=== PATIENT | male | born 1950 | race Caucasian/White ===

== ENCOUNTER → 2017-01-06 | Outpatient (CLI) | payer OTHER ==
[2017-01-06 10:27] LABS: CH 33.7; CHCM 35.1; HCT 36.4 % (39.0-53.0); MCH 34.4 pg (25.0-35.0); MCHC 35.6 g/dL (31.0-37.0); MCV 96.6 fL (80.0-100.0); Mean Platelet Volume 6.8; RBC 3.77 m/uL (4.30-5.90); RDW 15.4 % (11.5-15.5); WBC 5.8 k/uL (3.8-10.6)
[2017-01-06 11:06] LABS: Anion Gap 12 mmol/L; Blood Urea Nitrogen 16 mg/dL (9-20); Carbon Dioxide 25 mmol/L (22-30); Chloride 104 mmol/L (98-107); Glucose 140 mg/dL (74-99); Non-African American GFR(MDRD) >60 (>60 ml/min/1.73 sqM); Potassium 4.7 mmol/L (3.5-5.1); Sodium 141 mmol/L (137-145)
== END | disposition home or self-care (01) ==
LOC: LABWHC1 09:09
PROVIDERS: ATTEND Internal Medicine Clinical Cardiac Electrophysiology
DX: I25.10 Atherosclerotic heart disease of native coronary artery without angina pectoris (principal); I49.5 Sick sinus syndrome; I25.5 Ischemic cardiomyopathy; I50.22 Chronic systolic (congestive) heart failure
CPT/HCPCS: 36415; 80048; 85027

== ENCOUNTER 2017-01-13 13:40 | Day surgery (SDC) | payer OTHER ==
[2017-01-11 11:55] VITALS: BMI 35.8
[~2017-01-13 13:40] MED LIST: LACTATED RINGERS 1,000 ML IV SCH; SODIUM CHLORIDE 0.9% 1,000 ML IV SCH; ceFAZolin 1,000 MG in SODIUM CHLORIDE 0.9% IRRIGATIO 250 ML IRRIGATION ONE; ceFAZolin 2 GM in SODIUM CHLORIDE 0.9% 100 ML IVPB ONE
[2017-01-13 14:21] LABS: Glucose,Whole Blood 113 mg/dL (75-99)
[2017-01-13 14:36] LABS: Magnesium 1.9 mg/dL (1.6-2.3)
[2017-01-13] MEDS ORDERED: fentaNYL (PF) 50 MCG/ML 2 ML AMP ONE (14:55)
[2017-01-13] MEDS ORDERED: MIDAZOLAM 2 MG/2 ML VIAL ONE (14:55)
[2017-01-13] MEDS ORDERED: PROPOFOL 10 MG/ML 20 ML VIAL IV ONE (14:55)
[2017-01-13] MEDS ORDERED: IODIXANOL 320 MG/ML 100 ML IV ONE (15:08)
[2017-01-13] MEDS ORDERED: LIDOCAINE 2% INJ 20 MG/ML SQ ONE (15:49)
[2017-01-13] MEDS ORDERED: ACETAMINOPHEN TAB 325 MG TAB PO PRN (17:06)
[2017-01-13] MEDS ORDERED: ACETAMINOPHEN IV (For NPO) 1,000 MG in EMPTY BAG 1 BAG IVPB ONE (17:15)
[2017-01-13 17:57] LABS: Glucose,Whole Blood 100 mg/dL (75-99)
--- NOTE | 2017-01-13 18:07 | CE ---
DATE OF SERVICE: Mr. New is a 66-year-old male patient who has known ischemic cardiomyopathy and class II heart failure symptoms, sick sinus syndrome, ejection fraction 35% with inferolateral akinesis, CAD, old myocardial infarction, status post coronary stenting in 2013, chronotropic incompetence and a narrow QRS and also type 2 diabetes on medications. He underwent dual chamber ICD implantation for primary prevention of sudden cardiac as well as chronotropic incompetence, sick sinus syndrome and for ischemic cardiomyopathy with chronic systolic dysfunction, ejection fraction of 35%. Patient is brought to the EP lab in a fasting state. Written informed consent was obtained prior to the procedure. The left shoulder area was prepped and draped as per protocol. 1% lidocaine was used for local anesthesia. A 4 cm incision was made parallel to the deltopectoral groove about 1 to 1.5 cm medial to it. Incision was carried down to the level of the pectoralis muscle. Subfascial pocket was made. Hemostasis was assured. Axillary vein access was obtained at 2 separate points under fluoroscopy and via appropriate-sized introducer sheaths, 2 leads were positioned in the right heart. The atrial lead was a [employer] model #[id number], 52 cm in length and serial [id number]. This was screwed into the atrial appendage. P waves were 348 mV, pacing impedance ( ), pacing threshold 1 v at 0.5 ms. The RV lead was [employer] model #[id number], 58 cm in length and serial #[id number]. R waves were 12 mV, pacing impedance 640 ohms, pacing threshold 0.7 v at 0.5 ms. This was secured to the underlying pectoralis fascia using 2 nonabsorbable sutures. Pocket was irrigated with antibiotic solution. Leads were connected to the generator ([employer] medical model #[id number], serial #[id number]. Leads and the generator were then placed in the subfascial pocket. The generator was secured to the underlying pectoralis muscle. The wound was closed in 3 layers and dressed per protocol. DFT TESTING UNDER ANESTHESIA: DFT testing under anesthesia was performed. A shock and T wave protocol was used to induce ventricular fibrillation. This was adequately and appropriately detected at least sensitivity and in cathodal configuration a 10 joule shock failed, but a 20 joule shock was successful. Charge time was 4 seconds. The shock impedance was 70 ohms. No postshock noise. This was repeated once again in the anodal configuration, but once again the 10 joules shock failed, 20 joules shock was successful. No dropouts. No postshock noise. Charge time 4 seconds. Shocking impedance 72 ohms. Device was then programmed to DDDR 50 to 130 beats a minute and VIP mode Madit-RIT programming was programmed. RESULT: Successful dual-chamber ICD for severe ischemic cardiomyopathy and class II heart failure symptoms and sick sinus syndrome. PLAN: 1. Maximize beta blockers and increase Coreg to 6.25 mg twice daily. 2. Consider Entresto in the future. 3. High DFT.
--- NOTE | 2017-01-13 18:10 | LTR ---
January 13, 2017 RE: Alban New Eun Dear Dr. Micaela Hunt: I had the pleasure of seeing Mr. Alban New in electrophysiology follow-up. As you know, Mr. New has severe ischemic cardiomyopathy with class II heart failure symptoms and chronotropic incompetence with sick sinus syndrome. He underwent dual chamber ICD implantation for primary prevention of sudden cardiac . He has high DFT at 20 joules in both cathodal and anodal configurations. I have increased the dose of carvedilol to 6.25 mg twice daily and in the near future I would consider switching from NATHALIA inhibitors to Entresto if possible. Thank you for entrusting me with the care of your patient. Warm regards. Sincerely, AVANI VIRAMONTES MD
[2017-01-13] MEDS ORDERED: INSULIN GLARGINE 100 UNIT/ML 10 ML VIAL SQ SCH (21:00)
[2017-01-13] MEDS ORDERED: ATORVASTATIN 80 MG TAB PO SCH (21:00)
[2017-01-13] MEDS: ceFAZolin 2 GM in SODIUM CHLORIDE 0.9% 100 ML IVPB SCH (22:43)
[2017-01-13] MEDS: HYDROcodone/APAP 5-325MG 1 EACH TAB PO PRN (22:48)
[2017-01-13] MEDS: CARVEDILOL 6.25 MG TAB PO SCH (23:05)
[2017-01-13] MEDS: LISINOPRIL 20 MG TAB PO SCH (23:05)
[2017-01-13] MEDS: metFORMIN 500 MG TAB PO SCH (23:05)
[2017-01-14] MEDS: ceFAZolin 2 GM in SODIUM CHLORIDE 0.9% 100 ML IVPB SCH ×3 (03:51→14:35)
--- NOTE | 2017-01-14 08:01 | P.DS ---
Providers Attending physician: Pollo Burgess Primary care physician: Stated None Hospital Course: Patient is doing well from a cardiac standpoint. He denies any chest discomfort no dizziness lightheadedness. He has mild discomfort in the ICD site but there is no hematoma no swelling Breath sounds are normal no rhonchi no crackles Heart sounds are normal no rub no gallop normal heart sounds no murmurs No JVD No hematoma over the ICD site Impression Severe ischemic or myopathy ejection fraction 35% or less chronic systolic dysfunction with class II heart failure Status post dual-chamber ICD because he also has Sick Sinus Syndrome/ chronotropic incompetence Hypertension Adult-onset diabetes Dyslipidemia Central obesity BMI 35.8 CAD inferior wall RI status post CABG High DFTs both in the Total as well as an sparkle configurations of 20 J. 10 J failed Plan Increase carvedilol to 6.25 mg twice daily Next step is to consider ENTRESTO instead of lisinopril May go home if his chest x-ray, device interrogation both are within normal limits and once he completes IV antibiotics Patient Condition at Discharge: Stable Plan - Discharge Summary Discharge Medication List Clopidogrel Bisulfate [Plavix] 75 mg PO DAILY 01/25/14 [History] RX: Aspirin 650 mg PO QAM 01/25/14 [History] RX: metFORMIN HCL [Glucophage] 500 mg PO BID 01/25/14 [History] glipiZIDE [Glipizide Xl] 10 mg PO DAILY 01/25/14 [History] RX: Atorvastatin [Lipitor] 80 mg PO HS #30 tab 01/26/14 [Rx] RX: Spironolactone [Aldactone] 25 mg PO DAILY #30 tab 01/26/14 [Rx] Carvedilol [Carvedilol] 3.125 mg PO BID 07/27/16 [History] Cholecalciferol [Vitamin D3] 1,000 unit PO DAILY 07/27/16 [History] Isosorbide Mononitrate [Isosorbide Mononitrate ER] 30 mg PO DAILY 07/27/16 [ History] Insulin Glargine [Lantus] 52 units SQ HS 30 Days 07/28/16 [Rx]
--- NOTE | 2017-01-14 08:09 | XR ---
EXAMINATION TYPE: XR chest 2V DATE OF EXAM: 01/14/2017 6:20 AM COMPARISON: Prior chest x-ray one July 2016 HISTORY: Lead placement check TECHNIQUE: Frontal and lateral views of the chest are obtained. FINDINGS: There is no focal air space opacity, pleural effusion, or pneumothorax seen. The cardiac silhouette size is stable. Generator has been placed in the left pectoral region, there are leads in the right atrium and ventricle. Patient is post median sternotomy. The osseous structures are intact . IMPRESSION: No evident complication status post pacemaker placement.
[2017-01-14] MEDS: metFORMIN 500 MG TAB PO SCH (08:18)
[2017-01-14] MEDS: CARVEDILOL 6.25 MG TAB PO SCH (08:18)
[2017-01-14] MEDS: LISINOPRIL 20 MG TAB PO SCH (08:18)
[2017-01-14] MEDS: HYDROcodone/APAP 5-325MG 1 EACH TAB PO PRN (08:23)
[2017-01-14] MEDS ORDERED: ISOSORBIDE MONONITRATE ER 30 MG TAB.ER.24H PO SCH (09:00)
[2017-01-14] MEDS ORDERED: glipiZIDE 5 MG TAB PO SCH (09:00)
[2017-01-14] MEDS ORDERED: CLOPIDOGREL 75 MG TAB PO SCH (09:00)
[2017-01-14] MEDS ORDERED: SPIRONOLACTONE 25 MG TAB PO SCH (09:00)
[2017-01-14 13:28] VITALS: RESP 16
[2017-01-14 16:46] VITALS: BP 105/49; PULSE 59; TEMP 98.4
== END 2017-01-14 17:15 | disposition home or self-care (01) ==
LOC: CATHEP 13:40 → 3OBS 17:06 → CATHEP 01-14 17:15
PROVIDERS: ATTEND Internal Medicine Clinical Cardiac Electrophysiology
DX: I49.5 Sick sinus syndrome (principal); I25.5 Ischemic cardiomyopathy; I25.10 Atherosclerotic heart disease of native coronary artery without angina pectoris; I11.0 Hypertensive heart disease with heart failure; I50.22 Chronic systolic (congestive) heart failure; Z00.6 Encounter for examination for normal comparison and control in clinical research program; Z95.1 Presence of aortocoronary bypass graft; Z82.49 Family history of ischemic heart disease and other diseases of the circulatory system; I25.2 Old myocardial infarction; Z95.5 Presence of coronary angioplasty implant and graft; E66.8 Other obesity; Z68.35 Body mass index [BMI] 35.0-35.9, adult; E78.5 Hyperlipidemia, unspecified; K21.9 Gastro-esophageal reflux disease without esophagitis; Z87.891 Personal history of nicotine dependence; E11.9 Type 2 diabetes mellitus without complications; Z79.4 Long term (current) use of insulin; Z79.84 Long term (current) use of oral hypoglycemic drugs; Z79.82 Long term (current) use of aspirin; Z79.899 Other long term (current) drug therapy
CPT/HCPCS: 93641; 33249; 83735; 84443; 71020; C1892 ×2; C1769 ×2; C1898; C1721; C1777; J2001; J2250; Q9967; J0690 ×3; J3010; J2704

== ENCOUNTER 2020-05-13 15:59 | Inpatient (IN) | payer MEDICARE, OTHER ==
[2020-05-13] MEDS ORDERED: SODIUM CHLORIDE 0.9% 1,000 ML IV STA ×3 (16:48→19:41)
[2020-05-13 17:06] LABS: Basophils # (A) 0.1 k/uL (0-0.2); Basophils % (A) 1 %; Eosinophils # (A) 0.1 k/uL (0-0.7); Eosinophils % (A) 1 %; HCT 41.6 % (39.0-53.0); HGB 14.9 gm/dL (13.0-17.5); Hyperchromasia Slight; Lymphocytes # (A) 2.3 k/uL (1.0-4.8); Lymphocytes % (A) 20 %; MCH 33.1 pg (25.0-35.0); MCHC 35.9 g/dL (31.0-37.0); Mean Platelet Volume 7.2; Monocytes % (A) 9 %; Neutrophils # (A) 7.4 k/uL (1.3-7.7); Neutrophils % (A) 64 %; Platelet Count 203 k/uL (150-450); RBC 4.51 m/uL (4.30-5.90); RDW 13.9 % (11.5-15.5); WBC 11.5 k/uL (3.8-10.6)
[2020-05-13 17:16] LABS: Albumin 5.1 g/dL (3.5-5.0); Calcium 9.1 mg/dL (8.4-10.2); Potassium 4.1 mmol/L (3.5-5.1); Total Bilirubin 6.5 mg/dL (0.2-1.3); Total Protein 8.2 g/dL (6.3-8.2)
--- NOTE | 2020-05-13 17:22 | XR ---
EXAMINATION TYPE: XR chest 2V DATE OF EXAM: 05/13/2020 COMPARISON: 01/14/2017 HISTORY: Abdominal pain chest pain TECHNIQUE: 2 views FINDINGS: Heart and mediastinum are normal. Lungs are clear. Diaphragm is normal. There are sternal w ires. There is left axillary pacemaker. The bony thorax is intact. IMPRESSION: No active cardiopulmonary disease. Heart appears smaller than old exam.
--- NOTE | 2020-05-13 17:25 | XR ---
EXAMINATION TYPE: XR KUB DATE OF EXAM: 05/13/2020 COMPARISON: July 28, 2011 HISTORY: Pain TECHNIQUE: 2 views FINDINGS: There are clips from cholecystectomy. There are some small bowel fluid levels with probably some dilated small bowel. I see no evidence of free air. Lung bases are clear. Increased density over the right lower quadrant consistent with abdominal hernia. IMPRESSION: There is probably dilated fluid-filled small bowel that is a change compared to old exam. No free air.
[2020-05-13 17:27] LABS: MCV 92.2 fL (80.0-100.0)
[2020-05-13 18:07] LABS: Amylase 56 U/L (30-110)
[2020-05-13 18:08] LABS: Appearance,Urine Clear (Clear); Bilirubin,Urine Negative (Negative); Blood,Urine Negative (Negative); Color,Urine Yellow; Glucose,Urine (UA) Negative (Negative); Ketones,Urine Negative (Negative); Leukocyte Esterase,Urine Negative (Negative); Nitrite,Urine Negative (Negative); Protein,Urine Trace (Negative); Specific Gravity,Urine 1.024 (1.001-1.035)
--- NOTE | 2020-05-13 18:16 | US ---
EXAMINATION TYPE: US gallbladder DATE OF EXAM: 05/13/2020 COMPARISON: US 2012 CLINICAL HISTORY: Elevated bilirubin with abdominal pain. EXAM MEASUREMENTS: Liver Length: 15.2 cm Gallbladder Wall: Surgically absent CBD: 0.8 cm Right Kidney: 10.4 x 3.2 x 3.8 cm Pancreas: visualized portions wnl Liver: wnl Gallbladder: Surgically absent CBD: measures 0.8 cm Right Kidney: No hydronephrosis or masses seen Large peristalsing fluid collection midline measuring 14.1 x 7.3 x 12.3 cm. IMPRESSION: Intrahepatic bile ducts are not dilated. Cholecystectomy. No evidence of pancreatic mass.
--- NOTE | 2020-05-13 18:18 | ED ---
Dizziness HPI - General Chief Complaint: Dizziness Stated Complaint: Weakness Time Seen by Provider: 05/13/20 16:30 Source: patient Mode of arrival: wheelchair Limitations: no limitations - History of Present Illness Initial Comments: This is a 70-year-old male with a history of abdominal wall hernia Other medical issues who states for past couple days he's had decreased oral intake very weak dizzy lightheaded had trouble urinating head abdominal pain which is different from his usual decreased urine output.States he been constipated for the past 2 days. He denies any overt fevers chills or sweats no chest pain no cough. No other modifying factors at this time MD Complaint: dizziness, lightheadedness, other - Related Data Home Medications Medication Instructions Recorded Confirmed Aspirin 650 mg PO QAM 01/25/14 01/13/17 Clopidogrel Bisulfate [Plavix] 75 mg PO DAILY 01/25/14 01/13/17 glipiZIDE [Glipizide Xl] 10 mg PO DAILY 01/25/14 01/13/17 metFORMIN HCL [Glucophage] 500 mg PO BID 01/25/14 01/13/17 Cholecalciferol [Vitamin D3] 1,000 unit PO DAILY 07/27/16 01/13/17 Isosorbide Mononitrate [Isosorbide 30 mg PO DAILY 07/27/16 01/13/17 Mononitrate ER] Previous Rx's Medication Instructions Recorded Atorvastatin [Lipitor] 80 mg PO HS #30 tab 01/26/14 Spironolactone [Aldactone] 25 mg PO DAILY #30 tab 01/26/14 Insulin Glargine [Lantus] 52 units SQ HS 30 Days vial 07/28/16 carvediloL [Coreg] 6.25 mg PO BID #1 tablet 01/14/17 Allergies Allergy/AdvReac Type Severity Reaction Status Date / Time No Known Allergies Allergy Verified 01/11/17 11:43 Review of Systems ROS Statement: Those systems with pertinent positive or pertinent negative responses have been documented in the HPI. ROS Other: All systems not noted in ROS Statement are negative. Past Medical History Past Medical History: Chest Pain / Angina, Diabetes Mellitus, Hyperlipidemia, Hypertension Additional Past Medical History / Comment(s): LARGE ABD HERNIA History of Any Multi-Drug Resistant Organisms: None Reported Past Surgical History: Coronary Bypass/CABG, Heart Catheterization With Stent Additional Past Surgical History / Comment(s): quad bypass CABG 1994, total 9 cardiac stents Past Anesthesia/Blood Transfusion Reactions: No Reported Reaction Date of Last Stent Placement:: 2009 Past Psychological History: No Psychological Hx Reported Smoking Status: Never smoker Past Alcohol Use History: None Reported Past Drug Use History: None Reported - Past Family History Brother(s) Family Medical History: Cancer Sister(s) Family Medical History: Diabetes Mellitus, Hypertension General Exam - General Exam Comments Initial Comments: This is a well-developed well-nourished awake alert oriented 3 male Limitations: no limitations General appearance: alert, anxious Head exam: Present: atraumatic, normocephalic, normal inspection Eye exam: Present: normal appearance, PERRL, EOMI. Absent: scleral icterus, conjunctival injection, periorbital swelling ENT exam: Present: mucous membranes dry Neck exam: Present: normal inspection. Absent: tenderness, meningismus, lymphadenopathy Respiratory exam: Present: normal lung sounds bilaterally. Absent: respiratory distress, wheezes, rales, rhonchi, stridor Cardiovascular Exam: Present: regular rate, normal rhythm, normal heart sounds. Absent: systolic murmur, diastolic murmur, rubs, gallop, clicks GI/Abdominal exam: Present: soft, tenderness (Mild tenderness palpation no guarding or rebound however. Abdominal wall hernias noted), normal bowel sounds. Absent: distended, guarding, rebound, rigid Rectal exam: Present: deferred Extremities exam: Present: normal inspection, full ROM, normal capillary refill. Absent: tenderness, pedal edema, joint swelling, calf tenderness Back exam: Present: normal inspection Neurological exam: Present: alert, oriented X3, CN II-XII intact Psychiatric exam: Present: normal affect, normal mood Skin exam: Present: warm, dry, intact, normal color. Absent: rash Course Vital Signs 05/13/20 05/13/20 05/13/20 16:16 17:01 18:00 Temperature 98.2 F Pulse Rate 64 59 L 59 L Respiratory 18 18 18 Rate Blood Pressure 120/68 128/77 122/73 O2 Sat by Pulse 96 96 95 Oximetry EKG Findings - EKG Results: EKG: interpreted by ERMLulú, sinus rhythm (Sinus rhythm a 61. 186 QRS duration 126 QT since QTC 42/485) bundle-branch block evidence of old inferior changes) Medical Decision Making - Medical Decision Making I did discuss findings with the patient and his . Patient be admitted case is discussed with Dr. Zhou. CT abdomen is ordered. - Lab Data Result diagrams: 05/13/20 16:54 05/13/20 16:54 Lab Results 05/13/20 05/13/20 05/13/20 Range/Units 16:54 16:54 16:54 WBC 11.5 H (3.8-10.6) k/uL RBC 4.51 (4.30-5.90) m/uL Hgb 14.9 (13.0-17.5) gm/dL Hct 41.6 (39.0-53.0) % MCV 92.2 D (80.0-100.0) fL MCH 33.1 (25.0-35.0) pg MCHC 35.9 (31.0-37.0) g/dL RDW 13.9 (11.5-15.5) % Plt Count 203 (150-450) k/uL Neutrophils % 64 % Lymphocytes % 20 % Monocytes % 9 % Eosinophils % 1 % Basophils % 1 % Neutrophils # 7.4 (1.3-7.7) k/uL Lymphocytes # 2.3 (1.0-4.8) k/uL Monocytes # 1.0 (0-1.0) k/uL Eosinophils # 0.1 (0-0.7) k/uL Basophils # 0.1 (0-0.2) k/uL Hyperchromasia Slight Sodium 132 L (137-145) mmol/L Potassium 4.1 (3.5-5.1) mmol/L Chloride 84 L (98-107) mmol/L Carbon Dioxide 28 (22-30) mmol/L Anion Gap 20 mmol/L BUN 91 H (9-20) mg/dL Creatinine 1.88 H (0.66-1.25) mg/dL Est GFR (CKD-EPI)AfAm 42 (>60 ml/min/1.73 sqM) Est GFR (CKD-EPI)NonAf 36 (>60 ml/min/1.73 sqM) Glucose 144 H (74-99) mg/dL Plasma Lactic Acid Chavo (0.7-2.0) mmol/L Calcium 9.1 (8.4-10.2) mg/dL Total Bilirubin 6.5 H (0.2-1.3) mg/dL AST 56 (17-59) U/L ALT 26 (4-49) U/L Alkaline Phosphatase 64 (38-126) U/L Troponin I (0.000-0.034) ng/mL Total Protein 8.2 (6.3-8.2) g/dL Albumin 5.1 H (3.5-5.0) g/dL Amylase (30-110) U/L Lipase (23-300) U/L Urine Color Yellow Urine Appearance Clear (Clear) Urine pH 5.0 (5.0-8.0) Ur Specific [place] 1.024 (1.001-1.035) Urine Protein Trace H (Negative) Urine Glucose (UA) Negative (Negative) Urine Ketones Negative (Negative) Urine Blood Negative (Negative) Urine Nitrite Negative (Negative) Urine Bilirubin Negative (Negative) Urine Urobilinogen 2.0 (<2.0) mg/dL Ur Leukocyte Esterase Negative (Negative) 05/13/20 05/13/20 05/13/20 Range/Units 16:54 16:54 16:54 WBC (3.8-10.6) k/uL RBC (4.30-5.90) m/uL Hgb (13.0-17.5) gm/dL Hct (39.0-53.0) % MCV (80.0-100.0) fL MCH (25.0-35.0) pg MCHC (31.0-37.0) g/dL RDW (11.5-15.5) % Plt Count (150-450) k/uL Neutrophils % % Lymphocytes % % Monocytes % % Eosinophils % % Basophils % % Neutrophils # (1.3-7.7) k/uL Lymphocytes # (1.0-4.8) k/uL Monocytes # (0-1.0) k/uL Eosinophils # (0-0.7) k/uL Basophils # (0-0.2) k/uL Hyperchromasia Sodium (137-145) mmol/L Potassium (3.5-5.1) mmol/L Chloride (98-107) mmol/L Carbon Dioxide (22-30) mmol/L Anion Gap mmol/L BUN (9-20) mg/dL Creatinine (0.66-1.25) mg/dL Est GFR (CKD-EPI)AfAm (>60 ml/min/1.73 sqM) Est GFR (CKD-EPI)NonAf (>60 ml/min/1.73 sqM) Glucose (74-99) mg/dL Plasma Lactic Acid Chavo 1.9 (0.7-2.0) mmol/L Calcium (8.4-10.2) mg/dL Total Bilirubin (0.2-1.3) mg/dL AST (17-59) U/L ALT (4-49) U/L Alkaline Phosphatase (38-126) U/L Troponin I 0.039 H* (0.000-0.034) ng/mL Total Protein (6.3-8.2) g/dL Albumin (3.5-5.0) g/dL Amylase 56 (30-110) U/L Lipase 325 H (23-300) U/L Urine Color Urine Appearance (Clear) Urine pH (5.0-8.0) Ur Specific [place] (1.001-1.035) Urine Protein (Negative) Urine Glucose (UA) (Negative) Urine Ketones (Negative) Urine Blood (Negative) Urine Nitrite (Negative) Urine Bilirubin (Negative) Urine Urobilinogen (<2.0) mg/dL Ur Leukocyte Esterase (Negative) - Radiology Data Radiology results: report reviewed (I did review the imaging and report evidence of air-fluid levels nonspecific.), image reviewed Disposition Clinical Impression: Acute kidney injury, Elevated troponin, Dehydration, Hyperbilirubinemia, V entral hernia, Abdominal pain Disposition: ADMITTED IP TO THIS HOSP Condition: Fair Referrals: Laura Pryor MD [Primary Care Provider] - 1-2 days
[2020-05-13] MEDS ORDERED: NALOXONE 0.4 MG/ML 1 ML VIAL IV PRN (18:45)
[2020-05-13] MEDS ORDERED: ONDANSETRON 4 MG/2 ML VIAL IVP PRN (18:45)
--- NOTE | 2020-05-13 19:13 | CT ---
EXAMINATION TYPE: CT abdomen pelvis wo con DATE OF EXAM: 05/13/2020 COMPARISON: None HISTORY: Abdominal distention CT DLP: 942 mGycm Automated exposure control for dose reduction was used. Lung bases are clear. There is no pleural effusion. Heart size is normal. Liver shows no focal defect. There are multiple small calcified splenic granulomata. There is no panc reatic mass. There are clips from cholecystectomy. There are a few calcified granulomata in the liver . There is large stomach filled with fluid. There is large midline ventral hernia that contains multiple loops of bowel. There is an additional a djacent ventral hernia that contains a single loop of small bowel. This appears to be an umbilical he rnia. There is no adrenal mass. Kidneys have normal size. There is no hydronephrosis. Ureters are not dilated. There is no retroperitoneal adenopathy. Bladder distends smoothly. There are multiple dilated fluid-filled small bowel loops in the mid abdomen. Distal small bowel is n ot dilated. There is small bowel transition point at the smaller umbilical hernia. This contains a si ngle loop of incarcerated small bowel. The larger ventral hernia contains multiple loops of bowel wit hout evidence of a transition. There is atherosclerotic vascular calcification. The appendix is superior and medial and appears norm al. There is no evidence of free air. There is no ascites. There is no inguinal hernia. Lumbar vertebra have normal alignment. Posterior elements are intact. There is no compression fractur e. Bony pelvis is intact. IMPRESSION: There are 2 ventral hernias. There is incarcerated single loop of small bowel in the smaller hernia o n the left side that is producing mechanical small bowel obstruction. Small bowel dilated up to 4.5 c m.
--- NOTE | 2020-05-13 19:34 | ED ---
Medical Decision Making - Medical Decision Making Patient's case was discussed with Dr. Nguyen in light of the CAT scan patient will be admitted to his service with NG tube IV hydration and fully catheter for monitoring fluid output. The sound group will be on consult - Lab Data Result diagrams: 05/13/20 16:54 05/13/20 16:54 Lab Results 05/13/20 05/13/20 05/13/20 Range/Units 16:54 16:54 16:54 WBC 11.5 H (3.8-10.6) k/uL RBC 4.51 (4.30-5.90) m/uL Hgb 14.9 (13.0-17.5) gm/dL Hct 41.6 (39.0-53.0) % MCV 92.2 D (80.0-100.0) fL MCH 33.1 (25.0-35.0) pg MCHC 35.9 (31.0-37.0) g/dL RDW 13.9 (11.5-15.5) % Plt Count 203 (150-450) k/uL Neutrophils % 64 % Lymphocytes % 20 % Monocytes % 9 % Eosinophils % 1 % Basophils % 1 % Neutrophils # 7.4 (1.3-7.7) k/uL Lymphocytes # 2.3 (1.0-4.8) k/uL Monocytes # 1.0 (0-1.0) k/uL Eosinophils # 0.1 (0-0.7) k/uL Basophils # 0.1 (0-0.2) k/uL Hyperchromasia Slight Sodium 132 L (137-145) mmol/L Potassium 4.1 (3.5-5.1) mmol/L Chloride 84 L (98-107) mmol/L Carbon Dioxide 28 (22-30) mmol/L Anion Gap 20 mmol/L BUN 91 H (9-20) mg/dL Creatinine 1.88 H (0.66-1.25) mg/dL Est GFR (CKD-EPI)AfAm 42 (>60 ml/min/1.73 sqM) Est GFR (CKD-EPI)NonAf 36 (>60 ml/min/1.73 sqM) Glucose 144 H (74-99) mg/dL Plasma Lactic Acid Chavo (0.7-2.0) mmol/L Calcium 9.1 (8.4-10.2) mg/dL Total Bilirubin 6.5 H (0.2-1.3) mg/dL AST 56 (17-59) U/L ALT 26 (4-49) U/L Alkaline Phosphatase 64 (38-126) U/L Troponin I (0.000-0.034) ng/mL Total Protein 8.2 (6.3-8.2) g/dL Albumin 5.1 H (3.5-5.0) g/dL Amylase (30-110) U/L Lipase (23-300) U/L Urine Color Yellow Urine Appearance Clear (Clear) Urine pH 5.0 (5.0-8.0) Ur Specific [place] 1.024 (1.001-1.035) Urine Protein Trace H (Negative) Urine Glucose (UA) Negative (Negative) Urine Ketones Negative (Negative) Urine Blood Negative (Negative) Urine Nitrite Negative (Negative) Urine Bilirubin Negative (Negative) Urine Urobilinogen 2.0 (<2.0) mg/dL Ur Leukocyte Esterase Negative (Negative) 05/13/20 05/13/20 05/13/20 Range/Units 16:54 16:54 16:54 WBC (3.8-10.6) k/uL RBC (4.30-5.90) m/uL Hgb (13.0-17.5) gm/dL Hct (39.0-53.0) % MCV (80.0-100.0) fL MCH (25.0-35.0) pg MCHC (31.0-37.0) g/dL RDW (11.5-15.5) % Plt Count (150-450) k/uL Neutrophils % % Lymphocytes % % Monocytes % % Eosinophils % % Basophils % % Neutrophils # (1.3-7.7) k/uL Lymphocytes # (1.0-4.8) k/uL Monocytes # (0-1.0) k/uL Eosinophils # (0-0.7) k/uL Basophils # (0-0.2) k/uL Hyperchromasia Sodium (137-145) mmol/L Potassium (3.5-5.1) mmol/L Chloride (98-107) mmol/L Carbon Dioxide (22-30) mmol/L Anion Gap mmol/L BUN (9-20) mg/dL Creatinine (0.66-1.25) mg/dL Est GFR (CKD-EPI)AfAm (>60 ml/min/1.73 sqM) Est GFR (CKD-EPI)NonAf (>60 ml/min/1.73 sqM) Glucose (74-99) mg/dL Plasma Lactic Acid Chavo 1.9 (0.7-2.0) mmol/L Calcium (8.4-10.2) mg/dL Total Bilirubin (0.2-1.3) mg/dL AST (17-59) U/L ALT (4-49) U/L Alkaline Phosphatase (38-126) U/L Troponin I 0.039 H* (0.000-0.034) ng/mL Total Protein (6.3-8.2) g/dL Albumin (3.5-5.0) g/dL Amylase 56 (30-110) U/L Lipase 325 H (23-300) U/L Urine Color Urine Appearance (Clear) Urine pH (5.0-8.0) Ur Specific [place] (1.001-1.035) Urine Protein (Negative) Urine Glucose (UA) (Negative) Urine Ketones (Negative) Urine Blood (Negative) Urine Nitrite (Negative) Urine Bilirubin (Negative) Urine Urobilinogen (<2.0) mg/dL Ur Leukocyte Esterase (Negative) - Radiology Data Radiology results: report reviewed (Computed tomography scan did show evidence of small bowel obstruction with incarcerated single loop of small bowel in the smaller 2 ventral hernias on the left evidence of mechanical small bowel obstruction with small bowel dilated up to 4.5 cm. The case was discussed with Dr. Nguyen), image reviewed Disposition Clinical Impression: Acute kidney injury, Elevated troponin, Dehydration, Hyperbilirubinemia, Ventral hernia, Abdominal pain, SBO (small bowel obstruction), Incarcerated hernia Disposition: ADMITTED IP TO THIS HOSP Condition: Fair
[2020-05-13] MEDS: SODIUM CHLORIDE 0.9% 1,000 ML IV SCH (19:43)
[2020-05-13 20:39] LABS: INR 2.7 (<1.2); Partial Thromboplastin Time 36.8 sec (22.0-30.0); Prothrombin Time 26.2 sec (9.0-12.0)
[2020-05-13] MEDS: HYDROmorphone 1 MG/ML 1 ML SYRINGE IVP PRN (23:07)
--- NOTE | 2020-05-13 23:15 | P.CONS ---
History of Present Illness - Reason for Consult Consult date: 05/13/20 - History of Present Illness The patient is a 70-year-old male with a PMH of coronary artery disease status post multiple stents, intracardiac thrombus (on Coumadin), sick sinus syndrome status post pacemaker placement, hypertension, hyperlipidemia, type II DM, and chronic abdominal hernias presented to the ED with complaints of nausea, vomiting, and abdominal pain. The patient reported that he was in his usual state of health until about 2 days ago when he initially developed his nausea and vomiting. At the same time, he noted that he no longer could push his hernia back and experienced some tenderness when attempting to do so. He also reported mild intermittent abdominal pain 3 out of 10, nonradiating, aching in nature, alleviated with resting, and made worse with moving around. He also reported that he has not had a bowel movement during this time he feels more bloated. He notes that due to his nausea and vomiting, he has not been able to eat or drink anything and feels dehydrated. He denied chest pain, shortness of breath, fever, chills, or cough. He reported compliance with all of his medications including Coumadin. In the emergency room, and abdominal computed tomography scan revealed 2 ventral hernias with an incarcerated single loop of bowel in the smaller hernia producing a mechanical small bowel obstruction with small bowel dilated up to 4.5 cm. Chest x-ray was unremarkable. Laboratory evaluation revealed a sodium of 132, chloride of 84, INR 2.7, troponin 0.039, BUN 91, creatinine 1.88, lipase 325, and lactic acid 1.9. Review of Systems Pertinent positives and negatives as discussed in HPI, a complete review of systems was performed and all other systems are negative. Past Medical History Past Medical History: Chest Pain / Angina, Diabetes Mellitus, Hyperlipidemia, Hypertension Additional Past Medical History / Comment(s): LARGE ABD HERNIA History of Any Multi-Drug Resistant Organisms: None Reported Past Surgical History: Coronary Bypass/CABG, Heart Catheterization With Stent Additional Past Surgical History / Comment(s): quad bypass CABG 1994, total 9 cardiac stents Past Anesthesia/Blood Transfusion Reactions: No Reported Reaction Date of Last Stent Placement:: 2009 Past Psychological History: No Psychological Hx Reported Smoking Status: Never smoker Past Alcohol Use History: None Reported Additional Past Alcohol Use History / Comment(s): quit smoking 12 yrs ago, smoked since age 16 Past Drug Use History: None Reported - Past Family History Brother(s) Family Medical History: Cancer Sister(s) Family Medical History: Diabetes Mellitus, Hypertension Medications and Allergies Home Medications Medication Instructions Recorded Confirmed Type Clopidogrel Bisulfate [Plavix] 75 mg PO DAILY 01/25/14 05/13/20 History metFORMIN HCL [Glucophage] 500 mg PO BID 01/25/14 05/13/20 History Spironolactone [Aldactone] 25 mg PO DAILY #30 tab 01/26/14 05/13/20 Rx Isosorbide Mononitrate [Isosorbide 30 mg PO DAILY 07/27/16 05/13/20 History Mononitrate ER] Acetaminophen Tab [Tylenol Tab] 500 mg PO DAILY 05/13/20 05/13/20 History Atorvastatin Calcium [Lipitor] 40 mg PO DAILY 05/13/20 05/13/20 History Insulin Glargine [Lantus] 50 unit SQ HS 05/13/20 05/13/20 History Nitroglycerin Sl Tabs [Nitrostat] 0.4 mg SL Q5M PRN 05/13/20 05/13/20 History Warfarin [Coumadin] 5 mg PO DAILY 05/13/20 05/13/20 History carvediloL [Coreg] 6.25 mg PO AC-BID 05/13/20 05/13/20 History glipiZIDE [Glucotrol] 10 mg PO BID 05/13/20 05/13/20 History Allergies Allergy/AdvReac Type Severity Reaction Status Date / Time No Known Allergies Allergy Verified 05/13/20 19:10 Physical Exam Vitals: Vital Signs Temp Pulse Pulse Resp BP BP Pulse Ox 05/13/20 20:14 58 L 19 129/72 95 05/13/20 19:15 59 L 18 156/87 96 05/13/20 19:00 97.9 F 58 L 18 137/80 96 05/13/20 18:00 59 L 18 122/73 95 05/13/20 17:01 59 L 18 128/77 96 05/13/20 16:16 98.2 F 64 18 120/68 96 Intake and Output 05/13/20 05/13/20 05/13/20 06:59 14:59 22:59 Other: Weight 97.522 kg General: non toxic, no distress, appears at stated age, obese Derm: no unusual rashes/lesions no unusual ecchymoses, warm, dry Head: atraumatic, normocephalic, symmetric Eyes: EOMI, no lid lag, anicteric sclera, pupils equal round reactive to light ENT: Nose and ears atraumatic, no thrush, no pharyngeal erythema Neck: No thyromegaly, no cervical lymphadenopathy, trachea midline, supple Mouth: no lip lesion, mucus membranes moist Cardiovascular: S1S2 reg, no murmur, positive posterior tibial pulse bilateral, no edema, capillary refill less than 2 seconds Lungs: CTA bilateral, no rhonchi, no rales , no accessory muscle use Abdominal: Large multiple ventral hernias not fully reducible with some tenderness upon deep palpation, no guarding Ext: no gross muscle atrophy, muscle strength 5 out of 5 in all 4 extremities grossly, no contractures, Neuro: CN II-XI grossly intact, light touch intact all 4 extremities, finger to nose within normal limits, Psych: Alert, oriented, appropriate affect Results CBC & Chem 7: 05/13/20 16:54 05/13/20 16:54 Labs: Abnormal Lab Results - Last 24 Hours (Table) 05/13/20 05/13/20 05/13/20 Range/Units 16:54 16:54 16:54 WBC 11.5 H (3.8-10.6) k/uL PT (9.0-12.0) sec INR (<1.2) APTT (22.0-30.0) sec Sodium 132 L (137-145) mmol/L Chloride 84 L (98-107) mmol/L BUN 91 H (9-20) mg/dL Creatinine 1.88 H (0.66-1.25) mg/dL Glucose 144 H (74-99) mg/dL Total Bilirubin 6.5 H (0.2-1.3) mg/dL Troponin I (0.000-0.034) ng/mL Albumin 5.1 H (3.5-5.0) g/dL Lipase (23-300) U/L Urine Protein Trace H (Negative) 05/13/20 05/13/20 05/13/20 Range/Units 16:54 16:54 20:05 WBC (3.8-10.6) k/uL PT 26.2 H (9.0-12.0) sec INR 2.7 H (<1.2) APTT 36.8 H (22.0-30.0) sec Sodium (137-145) mmol/L Chloride (98-107) mmol/L BUN (9-20) mg/dL Creatinine (0.66-1.25) mg/dL Glucose (74-99) mg/dL Total Bilirubin (0.2-1.3) mg/dL Troponin I 0.039 H* (0.000-0.034) ng/mL Albumin (3.5-5.0) g/dL Lipase 325 H (23-300) U/L Urine Protein (Negative) Assessment and Plan Plan: Incarcerated abdominal hernia with mechanical small bowel obstruction -As per the surgical service -Patient currently on intermittent suction and nothing by mouth Elevated troponin -Likely secondary to acute stress with dehydration and acute kidney injury -Monitor for now -Patient denying active chest pain or shortness of breath Intracardiac thrombus, on Coumadin -Patient will need reversal of Coumadin if planned for operative repair -Hold Coumadin for now Acute kidney injury, prerenal, due to dehydration -Continue with IV fluids Hyponatremia, hypochloremic -Likely due to poor oral intake -Continue with IV fluids Chronic conditions: Hypertension, hyperlipidemia, type II DM, CAD -Continue with Levemir 25 units daily at bedtime (routinely takes 50 units) with insulin sliding scale and blood glucose monitoring -Continue with Lipitor, Coreg, Imdur -Hold off on spironolactone and Plavix (Restart immediately if no plans for surgery)
[2020-05-13] MEDS: INSULIN DETEMIR (LEVEMIR) 100 UNIT/ML SYR SQ SCH (23:36)
[2020-05-14 06:33] LABS: HCT 37.1 % (39.0-53.0); HGB 12.9 gm/dL (13.0-17.5); Hyperchromasia Slight; MCH 32.7 pg (25.0-35.0); MCHC 34.7 g/dL (31.0-37.0); MCV 94.2 fL (80.0-100.0); Mean Platelet Volume 7.1; Platelet Count 142 k/uL (150-450); Poikilocytosis Slight; RBC 3.94 m/uL (4.30-5.90); RDW 14.3 % (11.5-15.5); WBC 11.1 k/uL (3.8-10.6)
[2020-05-14 06:47] LABS: Potassium 3.7 mmol/L (3.5-5.1)
[2020-05-14 06:49] LABS: INR 2.9 (<1.2); Prothrombin Time 28.5 sec (9.0-12.0)
[2020-05-14] MEDS: SODIUM CHLORIDE 0.9% 1,000 ML IV SCH ×3 (06:58→17:41)
[2020-05-14] MEDS: carvediloL 6.25 MG TAB PO SCH ×2 (06:58→17:26)
[2020-05-14] MEDS: INSULIN ASPART (NovoLOG) 100 UNIT/ML VIAL SQ SCH ×4 (06:59→17:15)
[2020-05-14] MEDS: PANTOPRAZOLE 40 MG/10 ML VIAL IV SCH (08:36)
[2020-05-14] MEDS: ATORVASTATIN 40 MG TAB PO SCH (08:41)
--- NOTE | 2020-05-14 09:33 | P.PN ---
Progress Note - Text Progress Note Date: 05/14/20 I saw the patient around 745 this morning. Patient has a large incisional hernia there appeared to be incarceration just above the umbilicus. This was reduced. The patient has a cardiac history. He has been on Coumadin and Plavix. His surgery will be canceled for today. We will obtain cardiology consult prior to surgery.
[2020-05-14] MEDS ORDERED: PHYTONADIONE ORAL 5 MG/5 ML ORAL.SYRG PO STA (09:36)
--- NOTE | 2020-05-14 10:23 | XR ---
EXAMINATION TYPE: XR chest 1V portable DATE OF EXAM: 05/14/2020 CLINICAL HISTORY: NG tube placement TECHNIQUE: Single AP portable upright view of the chest is obtained. COMPARISON: Chest x-ray from one day earlier and older studies. FINDINGS: New nasogastric tube projects below diaphragm. Persistent overlying sternal wires and medi astinal clips. Cardiac silhouette size is mildly enlarged on current study with 2-lead pacemaker/AICD . Some chronic parenchymal changes with left basilar linear scarring and/or atelectasis. Right lung r emains clear. Osseous structures are intact. IMPRESSION:New Nasogastric tube projects below diaphragm.
[2020-05-14] MEDS ORDERED: PHYTONADIONE 5 MG in SODIUM CHLORIDE 0.9% 50 ML IVPB STA (10:37)
--- NOTE | 2020-05-14 11:25 | P.PN ---
Subjective Progress Note Date: 05/14/20 No new complaints. Had an emesis episode of 400cc of feculent material, NGT placed and initially only draining with aspiration, but now draining normally. Pts history of intracardiac thrombus warrants coumadin as an outpatient. Objective - Vital Signs Vital signs: Vital Signs Temp 98.7 F 05/14/20 08:40 Pulse 63 05/14/20 08:40 Resp 18 05/14/20 08:40 BP 152/67 05/14/20 08:40 Pulse Ox 92 L 05/14/20 08:40 Intake & Output 05/13/20 05/14/20 05/14/20 18:59 06:59 18:59 Intake Total 1000 10 Output Total 1000 Balance 0 10 Weight 97.522 kg 98.5 kg Intake: IV 10 Invasive Line 1 10 Intake, IV Titration 1000 Amount Sodium Chloride 0.9% 1, 1000 000 ml @ 130 mls/hr IV . Q7H42M STA Rx#:[id number] Oral 0 Output: Urine 1000 Other: Voiding Method Indwelling Catheter Indwelling Catheter - Exam Gen: awake, alert HEENT: normocephalic, atraumatic, good hearing acuity, moist mucous membranes, +NGT draining feculent material Resp: CTAB, good air exchange, no accessory muscle use, no wheezes, crackles, rhonchi CVS: good distal perfusion x 4, RRR, no murmurs, clicks, gallops GI: soft, NTTP, ND, large incisional abdominal hernia : no SPT, no CVAT, cunningham catheter not present MSK: no pitting edema, no clubbing Neuro: non-focal, no sensory deficits, appropriate tone Psych: cooperative, euthymic mood - Labs CBC & Chem 7: 05/14/20 06:00 05/14/20 06:00 Labs: Abnormal Lab Results - Last 24 Hours (Table) 05/13/20 05/13/20 05/13/20 Range/Units 16:54 16:54 16:54 WBC 11.5 H (3.8-10.6) k/uL RBC (4.30-5.90) m/uL Hgb (13.0-17.5) gm/dL Hct (39.0-53.0) % Plt Count (150-450) k/uL PT (9.0-12.0) sec INR (<1.2) APTT (22.0-30.0) sec Sodium 132 L (137-145) mmol/L Chloride 84 L (98-107) mmol/L BUN 91 H (9-20) mg/dL Creatinine 1.88 H (0.66-1.25) mg/dL Glucose 144 H (74-99) mg/dL Calcium (8.4-10.2) mg/dL Total Bilirubin 6.5 H (0.2-1.3) mg/dL Troponin I (0.000-0.034) ng/mL Albumin 5.1 H (3.5-5.0) g/dL Lipase (23-300) U/L Urine Protein Trace H (Negative) 05/13/20 05/13/20 05/13/20 Range/Units 16:54 16:54 20:05 WBC (3.8-10.6) k/uL RBC (4.30-5.90) m/uL Hgb (13.0-17.5) gm/dL Hct (39.0-53.0) % Plt Count (150-450) k/uL PT 26.2 H (9.0-12.0) sec INR 2.7 H (<1.2) APTT 36.8 H (22.0-30.0) sec Sodium (137-145) mmol/L Chloride (98-107) mmol/L BUN (9-20) mg/dL Creatinine (0.66-1.25) mg/dL Glucose (74-99) mg/dL Calcium (8.4-10.2) mg/dL Total Bilirubin (0.2-1.3) mg/dL Troponin I 0.039 H* (0.000-0.034) ng/mL Albumin (3.5-5.0) g/dL Lipase 325 H (23-300) U/L Urine Protein (Negative) 05/14/20 05/14/20 05/14/20 Range/Units 06:00 06:00 06:00 WBC 11.1 H (3.8-10.6) k/uL RBC 3.94 L (4.30-5.90) m/uL Hgb 12.9 L (13.0-17.5) gm/dL Hct 37.1 L (39.0-53.0) % Plt Count 142 L (150-450) k/uL PT 28.5 H (9.0-12.0) sec INR 2.9 H (<1.2) APTT (22.0-30.0) sec Sodium 130 L (137-145) mmol/L Chloride 91 L (98-107) mmol/L BUN 69 H (9-20) mg/dL Creatinine (0.66-1.25) mg/dL Glucose 114 H (74-99) mg/dL Calcium 8.0 L (8.4-10.2) mg/dL Total Bilirubin (0.2-1.3) mg/dL Troponin I (0.000-0.034) ng/mL Albumin (3.5-5.0) g/dL Lipase (23-300) U/L Urine Protein (Negative) Assessment and Plan Assessment: 1. Incarcerated Abdominal Hernia with SBO 2. Elevated Troponin 3. History of intra-cardiac thrombus on Coumadin 4. CAD 5. MITZI 6. HTN 7. HLD 8. DM II 70 year old man with history of CAD/HTN/HLD/DMII, intracardiac thrombus presented with ventral hernia with incarceration causing SBO, was admitted to surgery service and medicine asked for consultation and medical management. Incarcerated abdominal hernia with mechanical small bowel obstruction -As per the surgical service -Patient currently on intermittent suction and nothing by mouth Intracardiac thrombus, on Coumadin -Patient will need reversal of Coumadin if planned for operative repair = vitamin K given today, will draw a PM INR and tomorrow AM INR. -Pt will require heparin gtt to start once INR is less than 1.8. -heparin gtt to be stopped 6 hours before surgery, then re-started with bridging back to coumadin 4-6 hours after surgery. -The above was discussed with the primary surgeon -Cardiology consultation would be very helpful in this patient Acute kidney injury, prerenal, due to dehydration -Continue with IV fluids, monitor I/Os, daily weights. Chronic conditions: Hypertension, hyperlipidemia, type II DM, CAD -Continue with Levemir 25 units daily at bedtime (routinely takes 50 units) with insulin sliding scale and blood glucose monitoring -Continue with Lipitor, Coreg, Imdur -Hold off on spironolactone and Plavix (Restart immediately if no plans for surgery)
[2020-05-14 12:31] LABS: Glucose,Whole Blood 129 mg/dL (75-99)
--- NOTE | 2020-05-14 14:00 | ECHOF ---
Referral Reason:lv function MEASUREMENTS -------- HEIGHT: 167.6 cm WEIGHT: 98.4 kg BP: 122/73 IVSd: 1.8 cm (0.6 - 1.1) LVIDd: 4.7 cm (3.9 - 5.3) LVPWd: 2.0 cm (0.6 - 1.1) IVSs: 2.2 cm LVIDs: 3.6 cm LVPWs: 2.6 cm LAESV Index (A-L): 29.82 ml/m Ao Diam: 3.2 cm (2.0 - 3.7) AV Cusp: 2.2 cm (1.5 - 2.6) LA Diam: 3.8 cm (2.7 - 3.8) MV EXCURSION: 23.254 mm (> 18.000) MV EF SLOPE: 50 mm/s (70 - 150) EPSS: 0.5 cm MV E Kashif: 0.74 m/s MV DecT: 261 ms MV A Kashif: 0.83 m/s MV E/A Ratio: 0.89 RAP: 5.00 mmHg RVSP: 10.41 mmHg FINDINGS -------- AICD This was a technically difficult study with suboptimal views. The left ventricular size is normal. There is severe concentric left ventricular hypertrophy. Ove rall left ventricular systolic function is mildly impaired with, an EF between 45 - 50 %. Basal inf eroseptal LV wall motion is hypokinetic. Basal inferolateral hypokinesis. The RV was not well visualized. LA is midly dilated 29-33ml/m2. The right atrial size is normal. Lumason used The aortic valve is trileaflet and appears structurally normal. The mitral valve is normal. There is trace mitral regurgitation. The tricuspid valve appears structurally normal. Trace tricuspid regurgitation present. Right shahid tricular systolic pressure is normal at < 35 mmHg. There is no pulmonic regurgitation present. The aortic root size is normal. IVC Not well visulized. There is no pericardial effusion. CONCLUSIONS -------- 1. AICD 2. The left ventricular size is normal. 3. There is severe concentric left ventricular hypertrophy. 4. Overall left ventricular systolic function is mildly impaired with, an EF between 45 - 50 %. 5. Basal inferoseptal LV wall motion is hypokinetic. 6. Basal inferolateral hypokinesis. 7. LA is midly dilated 29-33ml/m2. 8. There is trace mitral regurgitation. 9. Trace tricuspid regurgitation present. NEPHROLOGY SOCIAL WORKER: June Valenzuela RDCS
--- NOTE | 2020-05-14 14:06 | P.GSCN ---
History of Present Illness Consult date: 05/14/20 History of present illness: CHIEF COMPLAINT: Large abdominal wall hernia HISTORY OF PRESENT ILLNESS: This is a 70-year-old male with a known history of abdominal wall hernia, diabetes mellitus, hyperlipidemia, hypertension, cardiac thrombus that was diagnosed in 1994, CABG 1994, coronary disease with 9 cardiac stents, history of sick sinus syndrome with pacemaker, diabetes mellitus, hyperlipidemia, hypertension, cholecystectomy. Patient presented to the emergency room with increasing pain and discomfort in his abdominal wall hernia over the last 3 days. It has continued to grow in size over the last 20 years. Patient was seen this morning by Dr. Nguyen in which hernia was reduced. He had a large 400 mL emesis feculent material. He currently has NG tube in place but nurse was only able to aspirate fecal material through it. Denies any fever. Denies any change in bowel movements. Denies any chest pain shortness breath. After hernia which reduced he is passing gas. PAST MEDICAL HISTORY: See list. PAST SURGICAL HISTORY: See list. MEDICATIONS: See list. ALLERGIES: See list. SOCIAL HISTORY: No illicit drug use. REVIEW OF SYSTEMS: CONSTITUTIONAL: Denies fever or chills. HEENT: Denies blurred vision, vision changes, or eye pain. Denies hemoptysis CARDIOVASCULAR: Denies chest pain or pressure. RESPIRATORY: No shortness of breath. GASTROINTESTINAL: See HPI for pertinent findings HEMATOLOGIC: Denies bleeding disorders. GENITOURINARY: Denies any blood in urine or increased urinary frequency. SKIN: Denies pruitis. Denies rash. PHYSICAL EXAM: VITAL SIGNS: Reviewed GENERAL: Well-developed in no acute distress. HEENT: No sclera icterus. Extraocular movements grossly intact. Moist buccal mucosa. Head is atraumatic, normocephalic. No nasal drainage. ABDOMEN: Large abdominal wall hernia NEUROLOGIC: Alert and oriented. Cranial nerves II through XII grossly intact. LABORATORY DATA: WBC 11.1, hemoglobin 14.9 down to 12.9, INR 2.9 IMAGING: Computed tomography scan of the abdomen and pelvis showed 2 ventral hernias. T here is incarcerated of small bowel in the smaller hernia on the left side that is producing mechanical small bowel obstruction. Small bowel dilated up to 4.5 cm ASSESSMENT: 1. 2 large ventral hernias with incarcerated single loop of small bowel and small hernia on the left side that is producing a mechanical small bowel obstruction. 2. History of intracardiac thrombus on Coumadin 3. History of coronary disease with prior CABG and cardiac stents 4. History of sick sinus syndrome with pacemaker placement 5. Acute kidney injury secondary to dehydration 6. Diabetes mellitus type 2 PLAN: -Continue NG tube to intermittent suction -continue nothing by mouth -Consult cardiology for cardiac clearance due to extensive cardiac history -Discussed case with medical service. Okay to initiate the heparin bridging for anticipation of surgery within the next few days -Medicine has ordered vitamin K to reverse the Coumadin prior to initiating the IV heparin Physician Fur Liner note has been reviewed by physician. Signing provider agrees with the documented findings, assessment, and plan of care. Past Medical History Past Medical History: Chest Pain / Angina, Diabetes Mellitus, Hyperlipidemia, Hypertension Additional Past Medical History / Comment(s): LARGE ABD HERNIA History of Any Multi-Drug Resistant Organisms: None Reported Past Surgical History: Coronary Bypass/CABG, Heart Catheterization With Stent Additional Past Surgical History / Comment(s): quad bypass CABG 1994, total 9 cardiac stents Past Anesthesia/Blood Transfusion Reactions: No Reported Reaction Date of Last Stent Placement:: 2009 Past Psychological History: No Psychological Hx Reported Smoking Status: Never smoker Past Alcohol Use History: None Reported Additional Past Alcohol Use History / Comment(s): quit smoking 12 yrs ago, smoked since age 16 Past Drug Use History: None Reported - Past Family History Brother(s) Family Medical History: Cancer Sister(s) Family Medical History: Diabetes Mellitus, Hypertension Medications and Allergies Home Medications Medication Instructions Recorded Confirmed Type Clopidogrel Bisulfate [Plavix] 75 mg PO DAILY 01/25/14 05/13/20 History metFORMIN HCL [Glucophage] 500 mg PO BID 01/25/14 05/13/20 History Spironolactone [Aldactone] 25 mg PO DAILY #30 tab 01/26/14 05/13/20 Rx Isosorbide Mononitrate [Isosorbide 30 mg PO DAILY 07/27/16 05/13/20 History Mononitrate ER] Acetaminophen Tab [Tylenol Tab] 500 mg PO DAILY 05/13/20 05/13/20 History Atorvastatin Calcium [Lipitor] 40 mg PO DAILY 05/13/20 05/13/20 History Insulin Glargine [Lantus] 50 unit SQ HS 05/13/20 05/13/20 History Nitroglycerin Sl Tabs [Nitrostat] 0.4 mg SL Q5M PRN 05/13/20 05/13/20 History Warfarin [Coumadin] 5 mg PO DAILY 05/13/20 05/13/20 History carvediloL [Coreg] 6.25 mg PO AC-BID 05/13/20 05/13/20 History glipiZIDE [Glucotrol] 10 mg PO BID 05/13/20 05/13/20 History Allergies Allergy/AdvReac Type Severity Reaction Status Date / Time No Known Allergies Allergy Verified 05/13/20 19:10 Surgical - Exam Vital Signs Temp Pulse Resp BP Pulse Ox 98.2 F 64 18 120/68 96 05/13/20 16:16 05/13/20 16:16 05/13/20 16:16 05/13/20 16:16 05/13/20 16:16 Results - Labs 05/14/20 06:00 05/14/20 06:00 Abnormal Lab Results - Last 24 Hours (Table) 05/13/20 05/13/20 05/13/20 Range/Units 16:54 16:54 16:54 WBC 11.5 H (3.8-10.6) k/uL RBC (4.30-5.90) m/uL Hgb (13.0-17.5) gm/dL Hct (39.0-53.0) % Plt Count (150-450) k/uL PT (9.0-12.0) sec INR (<1.2) APTT (22.0-30.0) sec Sodium 132 L (137-145) mmol/L Chloride 84 L (98-107) mmol/L BUN 91 H (9-20) mg/dL Creatinine 1.88 H (0.66-1.25) mg/dL Glucose 144 H (74-99) mg/dL POC Glucose (mg/dL) (75-99) mg/dL Calcium (8.4-10.2) mg/dL Total Bilirubin 6.5 H (0.2-1.3) mg/dL Troponin I (0.000-0.034) ng/mL Albumin 5.1 H (3.5-5.0) g/dL Lipase (23-300) U/L Urine Protein Trace H (Negative) 05/13/20 05/13/20 05/13/20 Range/Units 16:54 16:54 20:05 WBC (3.8-10.6) k/uL RBC (4.30-5.90) m/uL Hgb (13.0-17.5) gm/dL Hct (39.0-53.0) % Plt Count (150-450) k/uL PT 26.2 H (9.0-12.0) sec INR 2.7 H (<1.2) APTT 36.8 H (22.0-30.0) sec Sodium (137-145) mmol/L Chloride (98-107) mmol/L BUN (9-20) mg/dL Creatinine (0.66-1.25) mg/dL Glucose (74-99) mg/dL POC Glucose (mg/dL) (75-99) mg/dL Calcium (8.4-10.2) mg/dL Total Bilirubin (0.2-1.3) mg/dL Troponin I 0.039 H* (0.000-0.034) ng/mL Albumin (3.5-5.0) g/dL Lipase 325 H (23-300) U/L Urine Protein (Negative) 05/14/20 05/14/20 05/14/20 Range/Units 06:00 06:00 06:00 WBC 11.1 H (3.8-10.6) k/uL RBC 3.94 L (4.30-5.90) m/uL Hgb 12.9 L (13.0-17.5) gm/dL Hct 37.1 L (39.0-53.0) % Plt Count 142 L (150-450) k/uL PT 28.5 H (9.0-12.0) sec INR 2.9 H (<1.2) APTT (22.0-30.0) sec Sodium 130 L (137-145) mmol/L Chloride 91 L (98-107) mmol/L BUN 69 H (9-20) mg/dL Creatinine (0.66-1.25) mg/dL Glucose 114 H (74-99) mg/dL POC Glucose (mg/dL) (75-99) mg/dL Calcium 8.0 L (8.4-10.2) mg/dL Total Bilirubin (0.2-1.3) mg/dL Troponin I (0.000-0.034) ng/mL Albumin (3.5-5.0) g/dL Lipase (23-300) U/L Urine Protein (Negative) 05/14/20 Range/Units 12:20 WBC (3.8-10.6) k/uL RBC (4.30-5.90) m/uL Hgb (13.0-17.5) gm/dL Hct (39.0-53.0) % Plt Count (150-450) k/uL PT (9.0-12.0) sec INR (<1.2) APTT (22.0-30.0) sec Sodium (137-145) mmol/L Chloride (98-107) mmol/L BUN (9-20) mg/dL Creatinine (0.66-1.25) mg/dL Glucose (74-99) mg/dL POC Glucose (mg/dL) 129 H (75-99) mg/dL Calcium (8.4-10.2) mg/dL Total Bilirubin (0.2-1.3) mg/dL Troponin I (0.000-0.034) ng/mL Albumin (3.5-5.0) g/dL Lipase (23-300) U/L Urine Protein (Negative) Diabetes panel 05/13/20 05/14/20 Range/Units 16:54 06:00 Sodium 132 L 130 L (137-145) mmol/L Potassium 4.1 3.7 (3.5-5.1) mmol/L Chloride 84 L 91 L (98-107) mmol/L Carbon Dioxide 28 27 (22-30) mmol/L BUN 91 H 69 H (9-20) mg/dL Creatinine 1.88 H 1.24 (0.66-1.25) mg/dL Glucose 144 H 114 H (74-99) mg/dL Calcium 9.1 8.0 L (8.4-10.2) mg/dL AST 56 (17-59) U/L ALT 26 (4-49) U/L Alkaline Phosphatase 64 (38-126) U/L Total Protein 8.2 (6.3-8.2) g/dL Albumin 5.1 H (3.5-5.0) g/dL Calcium panel 05/13/20 05/14/20 Range/Units 16:54 06:00 Calcium 9.1 8.0 L (8.4-10.2) mg/dL Albumin 5.1 H (3.5-5.0) g/dL Pituitary panel 05/13/20 05/14/20 Range/Units 16:54 06:00 Sodium 132 L 130 L (137-145) mmol/L Potassium 4.1 3.7 (3.5-5.1) mmol/L Chloride 84 L 91 L (98-107) mmol/L Carbon Dioxide 28 27 (22-30) mmol/L BUN 91 H 69 H (9-20) mg/dL Creatinine 1.88 H 1.24 (0.66-1.25) mg/dL Glucose 144 H 114 H (74-99) mg/dL Calcium 9.1 8.0 L (8.4-10.2) mg/dL Adrenal panel 05/13/20 05/14/20 Range/Units 16:54 06:00 Sodium 132 L 130 L (137-145) mmol/L Potassium 4.1 3.7 (3.5-5.1) mmol/L Chloride 84 L 91 L (98-107) mmol/L Carbon Dioxide 28 27 (22-30) mmol/L BUN 91 H 69 H (9-20) mg/dL Creatinine 1.88 H 1.24 (0.66-1.25) mg/dL Glucose 144 H 114 H (74-99) mg/dL Calcium 9.1 8.0 L (8.4-10.2) mg/dL Total Bilirubin 6.5 H (0.2-1.3) mg/dL AST 56 (17-59) U/L ALT 26 (4-49) U/L Alkaline Phosphatase 64 (38-126) U/L Total Protein 8.2 (6.3-8.2) g/dL Albumin 5.1 H (3.5-5.0) g/dL
--- NOTE | 2020-05-14 14:53 | P.CRDCN ---
<Celi Olivo - Last Filed: 05/14/20 14:52> History of Present Illness Consult date: 05/14/20 History of present illness: CHIEF COMPLAINT: surgical clearance HISTORY OF PRESENT ILLNESS: 70-year-old male who was admitted to the surgical service due to incarcerated ventral hernia. Cardiology was consulted for surgical clearance. Patient has a history of coronary artery disease, hypertension, hyperlipidemia, diabetes mellitus and intracardiac thrombus. He is on anticoagulation with Coumadin. Patient follows in the office with Dr. Burgess. He was examined at the bedside this afternoon. He denies chest pain. Denies SOB. Case was discussed with Dr. Nguyen this morning who states he reduced the patients hernia at the bedside. DIAGNOSTICS: EKG reveals sinus rhythm with right bundle branch block. Heart rate 61. Chest xray no active cardiopulmonary disease. Laboratory data: WBC 11.1. Hemoglobin 12.9. Platelet count 142. INR 2.9. Sodium 130. Potassium 3.7. BUN 69. Creatinine 1.24. Troponin 0.039. 0.034. Current home cardiac medications include Coumadin 5 mg daily, Aldactone 25 mg daily, Coreg 6.25 mg twice a day, Imdur 30 mg daily, Plavix 75 mg daily, and Lipitor 40 mg daily REVIEW OF SYSTEMS: CONSTITUTIONAL: Denies fever or chills. HEENT: Denies blurred vision, vision changes, or eye pain. Denies hemoptysis CARDIOVASCULAR: Denies chest pain, orthopnea, PND or palpitations RESPIRATORY: No shortness of breath. GASTROINTESTINAL: Currently denies abdominal pain. Reports nausea or vomiting. HEMATOLOGIC: Denies bleeding disorders. GENITOURINARY: Denies any blood in urine. SKIN: Denies pruitis. Denies rash. PHYSICAL EXAM: VITAL SIGNS: Reviewed. GENERAL: Well-developed in no acute distress. HEENT: Head is normocephalic. Pupils are equal, round. Sclerae anicteric. Mucous membranes of the mouth are moist. Neck supple. No JVD or thyromegaly LUNGS: Respirations even and unlabored. Lungs essentially clear to auscultation bilaterally. HEART: Regular rate and rhythm. S1 and S2 heard. ABDOMEN: Soft. Nontender. Patient with large ventral hernia that was reduced by Dr. Nguyen this morning at the bedside. NG tube noted. EXTREMITIES: Normal range of motion. No clubbing or cyanosis. Peripheral pulses intact. No lower extremity edema NEUROLOGIC: Awake and alert. Oriented x 3. ASSESSMENT: 1. Incarcerated ventral hernia 2. History of intracardiac thrombus, maintained on long-term anticoagulation with Coumadin 3. History of coronary artery disease with history of CABG 4. Hypertension 5. Hyperlipidemia 6. Diabetes mellitus 7. History of AICD secondary to ischemic cardiomyopathy, most recent echo reveals EF 35% 8. History of paroxysmal atrial fibrillation PLAN: -Continue to hold plavix -Coumadin has been discontinued and Vitamin K has been ordered per medicine -INR to be repeated this afternoon -Agreeable to begin heparin drip when INR less than 2.0 -Obtain echocardiogram -Dr. Meier will evaluate patient this afternoon. Further recommendations pending Nurse practitioner note has been reviewed by physician. Signing provider agrees with the documented findings, assessment, and plan of care. Past Medical History Past Medical History: Chest Pain / Angina, Diabetes Mellitus, Hyperlipidemia, Hypertension Additional Past Medical History / Comment(s): LARGE ABD HERNIA History of Any Multi-Drug Resistant Organisms: None Reported Past Surgical History: Coronary Bypass/CABG, Heart Catheterization With Stent Additional Past Surgical History / Comment(s): quad bypass CABG 1994, total 9 cardiac stents Past Anesthesia/Blood Transfusion Reactions: No Reported Reaction Date of Last Stent Placement:: 2009 Past Psychological History: No Psychological Hx Reported Smoking Status: Never smoker Past Alcohol Use History: None Reported Additional Past Alcohol Use History / Comment(s): quit smoking 12 yrs ago, smoked since age 16 Past Drug Use History: None Reported - Past Family History Brother(s) Family Medical History: Cancer Sister(s) Family Medical History: Diabetes Mellitus, Hypertension Medications and Allergies Home Medications Medication Instructions Recorded Confirmed Type Clopidogrel Bisulfate [Plavix] 75 mg PO DAILY 01/25/14 05/13/20 History metFORMIN HCL [Glucophage] 500 mg PO BID 01/25/14 05/13/20 History Spironolactone [Aldactone] 25 mg PO DAILY #30 tab 01/26/14 05/13/20 Rx Isosorbide Mononitrate [Isosorbide 30 mg PO DAILY 07/27/16 05/13/20 History Mononitrate ER] Acetaminophen Tab [Tylenol Tab] 500 mg PO DAILY 05/13/20 05/13/20 History Atorvastatin Calcium [Lipitor] 40 mg PO DAILY 05/13/20 05/13/20 History Insulin Glargine [Lantus] 50 unit SQ HS 05/13/20 05/13/20 History Nitroglycerin Sl Tabs [Nitrostat] 0.4 mg SL Q5M PRN 05/13/20 05/13/20 History Warfarin [Coumadin] 5 mg PO DAILY 05/13/20 05/13/20 History carvediloL [Coreg] 6.25 mg PO AC-BID 05/13/20 05/13/20 History glipiZIDE [Glucotrol] 10 mg PO BID 05/13/20 05/13/20 History Allergies Allergy/AdvReac Type Severity Reaction Status Date / Time No Known Allergies Allergy Verified 05/13/20 19:10 Physical Exam Vitals: Vital Signs Temp Pulse Pulse Resp BP BP Pulse Ox 05/14/20 12:00 18 05/14/20 11:58 98 F 56 L 18 137/64 96 05/14/20 08:40 98.7 F 63 18 152/67 92 L 05/14/20 04:18 97.9 F 58 L 18 144/97 96 05/13/20 23:37 97.9 F 57 L 18 153/73 94 L 05/13/20 20:14 58 L 19 129/72 95 05/13/20 19:15 59 L 18 156/87 96 05/13/20 19:00 97.9 F 58 L 18 137/80 96 05/13/20 18:00 59 L 18 122/73 95 05/13/20 17:01 59 L 18 128/77 96 05/13/20 16:16 98.2 F 64 18 120/68 96 Intake and Output 05/13/20 05/14/20 05/14/20 22:59 06:59 14:59 Intake Total 1000 20 Output Total 1000 500 Balance 0 -480 Intake: IV 20 Invasive Line 1 20 Intake, IV Titration 1000 Amount Sodium Chloride 0.9% 1, 1000 000 ml @ 130 mls/hr IV . Q7H42M [facility] Rx#:[id number] Oral 0 Output: Urine 1000 Stool 500 Other: Voiding Method Indwelling Catheter Indwelling Catheter # Bowel Movements 2 Weight 97.522 kg 98.5 kg Results 05/14/20 06:00 05/14/20 06:00 Cardiac Enzymes 05/13/20 05/13/2005/14/20 Range/Units 16:54 16:54 06:00 AST 56 (17-59) U/L Troponin I 0.039 H* 0.034 (0.000-0.034) ng/mL Coagulation 05/13/20 05/14/20 Range/Units 20:05 06:00 PT 26.2 H 28.5 H (9.0-12.0) sec APTT 36.8 H (22.0-30.0) sec CBC 05/13/20 05/14/20 Range/Units 16:54 06:00 WBC 11.5 H 11.1 H (3.8-10.6) k/uL RBC 4.51 3.94 L (4.30-5.90) m/uL Hgb 14.9 12.9 L (13.0-17.5) gm/dL Hct 41.6 37.1 L (39.0-53.0) % Plt Count 203 142 L (150-450) k/uL Comprehensive Metabolic Panel 05/13/20 05/14/20 Range/Units 16:54 06:00 Sodium 132 L 130 L (137-145) mmol/L Potassium 4.1 3.7 (3.5-5.1) mmol/L Chloride 84 L 91 L (98-107) mmol/L Carbon Dioxide 28 27 (22-30) mmol/L BUN 91 H 69 H (9-20) mg/dL Creatinine 1.88 H 1.24 (0.66-1.25) mg/dL Glucose 144 H 114 H (74-99) mg/dL Calcium 9.1 8.0 L (8.4-10.2) mg/dL AST 56 (17-59) U/L ALT 26 (4-49) U/L Alkaline Phosphatase 64 (38-126) U/L Total Protein 8.2 (6.3-8.2) g/dL Albumin 5.1 H (3.5-5.0) g/dL Current Medications Generic Name Dose Route Start Last Admin Trade Name Freq PRN Reason Stop Dose Admin Atorvastatin Calcium 40 mg 05/14/20 09:00 05/14/20 08:41 Lipitor PO Not Given DAILY JO Carvedilol 6.25 mg 05/14/20 07:30 08/19/20 06:58 Coreg PO Not Given AC-BID JO Hydromorphone HCl 1 mg 05/13/20 18:45 05/13/20 23:07 Dilaudid IVP 1 mg Q3HR PRN Administration Severe Pain Sodium Chloride 1,000 mls @ 130 mls/hr 05/13/20 18:45 05/14/20 11:29 Saline 0.9% IV 130 mls/hr .Q7H42M JO Administration Insulin Aspart 0 unit 05/14/20 07:30 05/14/20 12:23 Novolog SQ Not Given AC-TID [facility] Protocol Insulin Detemir 25 unit 05/13/20 23:30 05/13/20 23:36 Levemir SQ Not Given HS JO Naloxone HCl 0.2 mg 05/13/20 18:45 Narcan IV Q2M PRN Opioid Reversal Ondansetron HCl 4 mg 05/13/20 18:45 05/14/20 08:35 Zofran IVP 4 mg Q8HR PRN Administration Nausea And Vomiting Pantoprazole Sodium 40 mg 05/14/20 09:00 05/14/20 08:36 Protonix IV 40 mg DAILY JO Administration Intake and Output 05/13/20 05/14/20 05/14/20 22:59 06:59 14:59 Intake Total 1000 20 Output Total 1000 500 Balance 0 -480 Intake: IV 20 Invasive Line 1 20 Intake, IV Titration 1000 Amount Sodium Chloride 0.9% 1, 1000 000 ml @ 130 mls/hr IV . Q7H42M [facility] Rx#:[id number] Oral 0 Output: Urine 1000 Stool 500 Other: Voiding Method Indwelling Catheter Indwelling Catheter # Bowel Movements 2 Weight 97.522 kg 98.5 kg 05/14/20 06:00 05/14/20 06:00 <Riccardo Meier - Last Filed: 05/14/20 16:06> History of Present Illness History of present illness: Agree with assessment and plan above. Patient seen and examined. Patient is a pleasant 70-year-old male who follows with Dr. Burgess for a history of coronary artery disease with CABG, paroxysmal atrial fibrillation, ischemic cardiomyopathy with ejection fraction 35% status post AICD, diabetes mellitus, hypertension and prior LV thrombus which has since resolved. From a heart failure standpoint patient is actually doing quite well. He is able to walk up a flight of stairs without any dyspnea or angina. He states he routinely mows lawn without issues. He had a repeat ultrasound performed today which showed ejection fraction 45-50%, left ventricular hypertrophy, no evidence of LV thrombus. Patient presented with incarcerated hernia which has since been reduced with improvement in pain. If patient is being considered for hernia repair, he will be at elevated risk however he is able to do 4 mets of activity and he will be moderate risk given his cardiomyopathy, history of coronary artery disease and multiple medical comorbidities. If surgery is considered agree with holding Coumadin and Plavix. We will continue to monitor. Physical Exam Vitals: Vital Signs Temp Pulse Pulse Resp BP BP Pulse Ox 05/14/20 15:43 18 05/14/20 15:42 146/74 05/14/20 12:00 18 05/14/20 11:58 98 F 56 L 18 137/64 96 05/14/20 08:40 98.7 F 63 18 152/67 92 L 05/14/20 04:18 97.9 F 58 L 18 144/97 96 05/13/20 23:37 97.9 F 57 L 18 153/73 94 L 05/13/20 20:14 58 L 19 129/72 95 05/13/20 19:15 59 L 18 156/87 96 05/13/20 19:00 97.9 F 58 L 18 137/80 96 05/13/20 18:00 59 L 18 122/73 95 05/13/20 17:01 59 L 18 128/77 96 05/13/20 16:16 98.2 F 64 18 120/68 96 Intake and Output 05/14/20 05/14/20 05/14/20 06:59 14:59 22:59 Intake Total 1000 320 10 Output Total 1000 500 400 Balance 0 -180 -390 Intake: IV 20 10 Invasive Line 1 20 10 Intake, IV Titration 1000 Amount Sodium Chloride 0.9% 1, 1000 000 ml @ 130 mls/hr IV . Q7H42M [facility] Rx#:[id number] Oral 0 300 Output: Urine 1000 Stool 500 400 Other: Voiding Method Indwelling Catheter Indwelling Catheter Indwelling Catheter # Bowel Movements 2 1 Weight 98.5 kg Results 05/14/20 06:00 05/14/20 06:00 Cardiac Enzymes 05/13/20 05/13/20 05/14/20 Range/Units 16:54 16:54 06:00 AST 56 (17-59) U/L Troponin I 0.039 H* 0.034 (0.000-0.034) ng/mL Coagulation 05/13/20 05/14/20 Range/Units 20:05 06:00 PT 26.2 H 28.5 H (9.0-12.0) sec APTT 36.8 H (22.0-30.0) sec CBC 05/13/20 05/14/20 Range/Units 16:54 06:00 WBC 11.5 H 11.1 H (3.8-10.6) k/uL RBC 4.51 3.94 L (4.30-5.90) m/uL Hgb 14.9 12.9 L (13.0-17.5) gm/dL Hct 41.6 37.1 L (39.0-53.0) % Plt Count 203 142 L (150-450) k/uL Comprehensive Metabolic Panel 05/13/20 05/14/20 Range/Units 16:54 06:00 Sodium 132 L 130 L (137-145) mmol/L Potassium 4.1 3.7 (3.5-5.1) mmol/L Chloride 84 L 91 L (98-107) mmol/L Carbon Dioxide 28 27 (22-30) mmol/L BUN 91 H 69 H (9-20) mg/dL Creatinine 1.88 H 1.24 (0.66-1.25) mg/dL Glucose 144 H 114 H (74-99) mg/dL Calcium 9.1 8.0 L (8.4-10.2) mg/dL AST 56 (17-59) U/L ALT 26 (4-49) U/L Alkaline Phosphatase 64 (38-126) U/L Total Protein 8.2 (6.3-8.2) g/dL Albumin 5.1 H (3.5-5.0) g/dL Current Medications Generic Name Dose Route Start Last Admin Trade Name Freq PRN Reason Stop Dose Admin Atorvastatin Calcium 40 mg 05/14/20 09:00 05/14/20 08:41 Lipitor PO Not Given DAILY JO Carvedilol 6.25 mg 05/14/20 07:30 05/14/20 06:58 Coreg PO Not Given AC-BID JO Hydromorphone HCl 1 mg 05/13/20 18:45 05/13/20 23:07 Dilaudid IVP 1 mg Q3HR PRN Administration Severe Pain Sodium Chloride 1,000 mls @ 130 mls/hr 05/13/20 18:45 05/14/20 11:29 Saline 0.9% IV 130 mls/hr .Q7H42M JO Administration Insulin Aspart 0 unit 05/14/20 07:30 05/14/20 12:23 Novolog SQ Not Given AC-TID [facility] Protocol Insulin Detemir 25 unit 05/13/20 23:30 05/13/20 23:36 Levemir SQ Not Given HS [facility] Naloxone HCl 0.2 mg 05/13/20 18:45 Narcan IV Q2M PRN Opioid Reversal Ondansetron HCl 4 mg 05/13/20 18:45 05/14/20 08:35 Zofran IVP 4 mg Q8HR PRN Administration Nausea And Vomiting Pantoprazole Sodium 40 mg 05/14/20 09:00 05/14/20 08:36 Protonix IV 40 mg DAILY JO Administration Intake and Output 05/14/20 05/14/20 05/14/20 06:59 14:59 22:59 Intake Total 1000 320 10 Output Total 1000 500 400 Balance 0 -180 -390 Intake: IV 20 10 Invasive Line 1 20 10 Intake, IV Titration 1000 Amount Sodium Chloride 0.9% 1, 1000 000 ml @ 130 mls/hr IV . Q7H42M [facility] Rx#:[id number] Oral 0 300 Output: Urine 1000 Stool 500 400 Other: Voiding Method Indwelling Catheter Indwelling Catheter Indwelling Catheter # Bowel Movements 2 1 Weight 98.5 kg 05/14/20 06:00 05/14/20 06:00
[2020-05-14 17:02] LABS: Glucose,Whole Blood 123 mg/dL (75-99)
[2020-05-14 17:41] LABS: INR 1.4 (<1.2); Prothrombin Time 14.3 sec (9.0-12.0)
[2020-05-14] MEDS ORDERED: HEPARIN SODIUM,PORCINE 5,000 UNIT/ML 1 ML VIAL IV PRN (17:48)
[2020-05-14] MEDS: HEPARIN SOD,PORK IN 0.45% NACL 25,000 UNIT in 0.45% NACL 1 250ML.BAG IV SCH (17:58)
[2020-05-14 21:00] LABS: Glucose,Whole Blood 111 mg/dL (75-99)
[2020-05-14] MEDS: INSULIN DETEMIR (LEVEMIR) 100 UNIT/ML SYR SQ SCH (21:06)
[2020-05-15] MEDS: SODIUM CHLORIDE 0.9% 1,000 ML IV SCH ×4 (02:14→23:34)
[2020-05-15 06:26] LABS: Glucose,Whole Blood 89 mg/dL (75-99)
[2020-05-15] MEDS: INSULIN ASPART (NovoLOG) 100 UNIT/ML VIAL SQ SCH ×3 (06:35→17:09)
[2020-05-15 06:43] LABS: Basophils % (A) 1 %; Eosinophils # (A) 0.1 k/uL (0-0.7); Eosinophils % (A) 2 %; HCT 32.8 % (39.0-53.0); HGB 11.1 gm/dL (13.0-17.5); Lymphocytes # (A) 1.4 k/uL (1.0-4.8); Lymphocytes % (A) 17 %; MCH 32.2 pg (25.0-35.0); MCHC 33.8 g/dL (31.0-37.0); MCV 95.2 fL (80.0-100.0); Mean Platelet Volume 7.3; Monocytes # (A) 0.5 k/uL (0-1.0); Monocytes % (A) 7 %; Neutrophils # (A) 5.9 k/uL (1.3-7.7); Neutrophils % (A) 71 %; Platelet Count 106 k/uL (150-450); RBC 3.44 m/uL (4.30-5.90); WBC 8.2 k/uL (3.8-10.6)
[2020-05-15] MEDS: carvediloL 6.25 MG TAB PO SCH ×2 (06:44→17:21)
[2020-05-15 06:47] LABS: INR 1.1 (<1.2); Prothrombin Time 11.4 sec (9.0-12.0)
[2020-05-15 07:09] LABS: ALT 20 U/L (4-49); AST 34 U/L (17-59); African American GFR (CKD) >90 (>60 ml/min/1.73 sqM); Albumin 3.5 g/dL (3.5-5.0); Alkaline Phosphatase 48 U/L (38-126); Anion Gap 7 mmol/L; Blood Urea Nitrogen 30 mg/dL (9-20); Calcium 7.7 mg/dL (8.4-10.2); Carbon Dioxide 27 mmol/L (22-30); Chloride 101 mmol/L (98-107); Glucose 83 mg/dL (74-99); Non-African American GFR(CKD) 82 (>60 ml/min/1.73 sqM); Potassium 3.7 mmol/L (3.5-5.1); Sodium 135 mmol/L (137-145); Total Bilirubin 3.9 mg/dL (0.2-1.3); Total Protein 6.1 g/dL (6.3-8.2)
[2020-05-15] MEDS: ATORVASTATIN 40 MG TAB PO SCH (08:07)
[2020-05-15] MEDS: PANTOPRAZOLE 40 MG/10 ML VIAL IV SCH (08:07)
--- NOTE | 2020-05-15 11:10 | P.PN ---
Subjective Progress Note Date: 05/15/20 No new complaints today. Resting comfortably upon my evaluation. Objective - Vital Signs Vital signs: Vital Signs Temp 98.8 F 05/15/20 08:06 Pulse 51 L 05/15/20 08:06 Resp 18 05/15/20 08:06 BP 128/60 05/15/20 08:06 Pulse Ox 94 L 05/15/20 08:06 Intake & Output 05/14/20 05/15/20 05/15/20 18:59 06:59 18:59 Intake Total 30 121.066 10 Output Total 5115 924 2734 Balance -1620 -678.934 -2490 Weight 97.7 kg Intake: IV 30 10 Invasive Line 1 30 10 Intake, IV Titration 121.066 Amount Heparin Sod,Pork in 0.45% 121.066 NaCl 25,000 unit In 0.45 % NaCl 1 250ml.bag @ 10.2 UNITS/KG/HR 10.047 mls/ hr IV .Q24H [facility] Rx#: [id number] Output: Urine 125 730 3371 Uretheral (Cunningham) 2500 Stool 900 400 Other: Voiding Method Indwelling Catheter Indwelling Catheter Indwelling Catheter # Bowel Movements 1 300 - Exam Gen: awake, alert HEENT: normocephalic, atraumatic, good hearing acuity, moist mucous membranes, +NGT draining feculent material Resp: CTAB, good air exchange, no accessory muscle use, no wheezes, crackles, rhonchi CVS: good distal perfusion x 4, RRR, no murmurs, clicks, gallops GI: soft, NTTP, ND, large incisional abdominal hernia : no SPT, no CVAT, cunningham catheter not present MSK: no pitting edema, no clubbing Neuro: non-focal, no sensory deficits, appropriate tone Psych: cooperative, euthymic mood - Labs CBC & Chem 7: 05/15/20 06:07 05/15/20 06:07 Labs: Abnormal Lab Results - Last 24 Hours (Table) 05/14/20 05/14/20 05/14/20 Range/Units 12:20 16:56 17:04 RBC (4.30-5.90) m/uL Hgb (13.0-17.5) gm/dL Hct (39.0-53.0) % Plt Count (150-450) k/uL PT 14.3 H (9.0-12.0) sec INR 1.4 H (<1.2) APTT (22.0-30.0) sec Sodium (137-145) mmol/L BUN (9-20) mg/dL POC Glucose (mg/dL) 129 H 123 H (75-99) mg/dL Calcium (8.4-10.2) mg/dL Total Bilirubin (0.2-1.3) mg/dL Total Protein (6.3-8.2) g/dL 05/14/20 05/15/20 05/15/20 Range/Units 20:58 05:00 06:07 RBC 3.44 L (4.30-5.90) m/uL Hgb 11.1 L (13.0-17.5) gm/dL Hct 32.8 L (39.0-53.0) % Plt Count 106 L (150-450) k/uL PT (9.0-12.0) sec INR (<1.2) APTT 39.3 H (22.0-30.0) sec Sodium (137-145) mmol/L BUN (9-20) mg/dL POC Glucose (mg/dL) 111 H (75-99) mg/dL Calcium (8.4-10.2) mg/dL Total Bilirubin (0.2-1.3) mg/dL Total Protein (6.3-8.2) g/dL 05/15/20 Range/Units 06:07 RBC (4.30-5.90) m/uL Hgb (13.0-17.5) gm/dL Hct (39.0-53.0) % Plt Count (150-450) k/uL PT (9.0-12.0) sec INR (<1.2) APTT (22.0-30.0) sec Sodium 135 L (137-145) mmol/L BUN 30 H (9-20) mg/dL POC Glucose (mg/dL) (75-99) mg/dL Calcium 7.7 L (8.4-10.2) mg/dL Total Bilirubin 3.9 H (0.2-1.3) mg/dL Total Protein 6.1 L (6.3-8.2) g/dL Assessment and Plan Assessment: 1. Incarcerated Abdominal Hernia with SBO 2. Elevated Troponin 3. History of intra-cardiac thrombus on Coumadin 4. CAD 5. MITZI 6. HTN 7. HLD 8. DM II 70 year old man with history of CAD/HTN/HLD/DMII, intracardiac thrombus presented with ventral hernia with incarceration causing SBO, was admitted to surgery service and medicine asked for consultation and medical management. Incarcerated abdominal hernia with mechanical small bowel obstruction -As per the surgical service -Patient currently on intermittent suction and nothing by mouth Intracardiac thrombus, on Coumadin -heparin gtt to be stopped 6 hours before surgery, then re-started with bridging back to coumadin 4-6 hours after surgery. -The above was discussed with the primary surgeon -Cardiology consultation would be very helpful in this patient Acute kidney injury, prerenal, due to dehydration -Continue with IV fluids, monitor I/Os, daily weights. Chronic conditions: Hypertension, hyperlipidemia, type II DM, CAD -Continue with Levemir 25 units daily at bedtime (routinely takes 50 units) with insulin sliding scale and blood glucose monitoring -Continue with Lipitor, Coreg, Imdur -Hold off on spironolactone and Plavix until post-op
[2020-05-15 11:54] LABS: Glucose,Whole Blood 87 mg/dL (75-99)
--- NOTE | 2020-05-15 12:54 | P.PN ---
Subjective Progress Note Date: 05/15/20 CHIEF COMPLAINT: Large abdominal wall hernia HISTORY OF PRESENT ILLNESS: Patient had hernia reduced yesterday by Dr. Nguyen. Patient did have bowel movements and is passing gas. NG tube was removed this morning. Patient will be placed on full liquid diet. Afebrile. WBC 8.2 HGB 11.1 INR 1.1 Total bili 3.9 patient is currently on IV heparin. Coumadin has been reversed with vitamin K and INR 1.1 PHYSICAL EXAM: VITAL SIGNS: Reviewed. GENERAL: Well-developed in no acute distress. HEENT: No sclera icterus. Extraocular movements grossly intact. Moist buccal mucosa. Head is atraumatic, normocephalic. ABDOMEN: Soft. Nontender. Large abdominal wall hernia NEUROLOGIC: Alert and oriented. Cranial nerves II through XII grossly intact. ASSESSMENT: 1. 2 large ventral hernias with incarcerated single loop of small bowel and small hernia on the left side that is producing a mechanical small bowel obstruction. 2. History of intracardiac thrombus on Coumadin at home 3. History of coronary disease with prior CABG and cardiac stents 4. History of ischemic cardiomyopathy with AICD 5. Acute kidney injury secondary to dehydration 6. Diabetes mellitus type 2 PLAN: -NG tube removed this morning -Start full liquid diet -We'll monitor patient to make sure that he is tolerating diet before proceeding with any hernia repair surgery -Continue IV heparin for anticoagulation -Appreciate medicine and cardiology consults Physician [employer] Operator note has been reviewed by physician. Signing provider agrees with the documented findings, assessment, and plan of care. Objective - Vital Signs Vital signs: Vital Signs Temp 98.8 F 05/15/20 08:06 Pulse 51 L 05/15/20 08:06 Resp 18 05/15/20 08:06 BP 128/60 05/15/20 08:06 Pulse Ox 94 L 05/15/20 08:06 Intake & Output 05/14/20 05/15/20 05/15/20 18:59 06:59 18:59 Intake Total 30 121.066 10 Output Total 1803 824 8827 Balance -5208 -154.562 -5213 Weight 97.7 kg Intake: IV 30 10 Invasive Line 1 30 10 Intake, IV Titration 121.066 Amount Heparin Sod,Pork in 0.45% 121.066 NaCl 25,000 unit In 0.45 % NaCl 1 250ml.bag @ 10.2 UNITS/KG/HR 10.047 mls/ hr IV .Q24H [facility] Rx#: [id number] Output: Urine 019 003 0501 Uretheral (Beard) 2500 Stool 900 400 Other: Voiding Method Indwelling Catheter Indwelling Catheter Indwelling Catheter # Bowel Movements 1 300 - Labs CBC & Chem 7: 05/15/20 06:07 05/15/20 06:07 Labs: Abnormal Lab Results - Last 24 Hours (Table) 05/14/20 05/14/20 05/14/20 Range/Units 16:56 17:04 20:58 RBC (4.30-5.90) m/uL Hgb (13.0-17.5) gm/dL Hct (39.0-53.0) % Plt Count (150-450) k/uL PT 14.3 H (9.0-12.0) sec INR 1.4 H (<1.2) APTT (22.0-30.0) sec Sodium (137-145) mmol/L BUN (9-20) mg/dL POC Glucose (mg/dL) 123 H 111 H (75-99) mg/dL Calcium (8.4-10.2) mg/dL Total Bilirubin (0.2-1.3) mg/dL Total Protein (6.3-8.2) g/dL 05/15/20 05/15/20 05/15/20 Range/Units 05:00 06:07 06:07 RBC 3.44 L (4.30-5.90) m/uL Hgb 11.1 L (13.0-17.5) gm/dL Hct 32.8 L (39.0-53.0) % Plt Count 106 L (150-450) k/uL PT (9.0-12.0) sec INR (<1.2) APTT 39.3 H (22.0-30.0) sec Sodium 135 L (137-145) mmol/L BUN 30 H (9-20) mg/dL POC Glucose (mg/dL) (75-99) mg/dL Calcium 7.7 L (8.4-10.2) mg/dL Total Bilirubin 3.9 H (0.2-1.3) mg/dL Total Protein 6.1 L (6.3-8.2) g/dL 05/15/20 Range/Units 11:38 RBC (4.30-5.90) m/uL Hgb (13.0-17.5) gm/dL Hct (39.0-53.0) % Plt Count (150-450) k/uL PT (9.0-12.0) sec INR (<1.2) APTT 51.6 H (22.0-30.0) sec Sodium (137-145) mmol/L BUN (9-20) mg/dL POC Glucose (mg/dL) (75-99) mg/dL Calcium (8.4-10.2) mg/dL Total Bilirubin (0.2-1.3) mg/dL Total Protein (6.3-8.2) g/dL
--- NOTE | 2020-05-15 14:02 | P.PN ---
<Celi Olivo Vern - Last Filed: 05/15/20 14:01> Subjective Progress Note Date: 05/15/20 CHIEF COMPLAINT: surgical clearance HISTORY OF PRESENT ILLNESS: Patient examined at the bedside. Denies chest pain or shortness of breath. Surgery is following along with patient. His NG tube was DC today and he was started on a liquid diet. PHYSICAL EXAM: VITAL SIGNS: Reviewed. GENERAL: Well-developed in no acute distress. HEENT: Head is normocephalic. Pupils are equal, round. Sclerae anicteric. Mucous membranes of the mouth are moist. Neck supple. No JVD or thyromegaly LUNGS: Respirations even and unlabored. Lungs essentially clear to auscultation bilaterally. HEART: Regular rate and rhythm. S1 and S2 heard. ABDOMEN: Soft. Nontender. Patient with large ventral hernia. EXTREMITIES: Normal range of motion. No clubbing or cyanosis. Peripheral pulses intact. No lower extremity edema NEUROLOGIC: Awake and alert. Oriented x 3. ASSESSMENT: 1. Incarcerated ventral hernia 2. History of intracardiac thrombus, maintained on long-term anticoagulation with Coumadin 3. History of coronary artery disease with history of CABG 4. Hypertension 5. Hyperlipidemia 6. Diabetes mellitus 7. History of AICD secondary to ischemic cardiomyopathy, most recent echo reveals EF 35% 8. History of paroxysmal atrial fibrillation PLAN: -Continue to hold plavix until final decision has been made regarding surgery -Continue IV heparin until final decision has been made regarding surgery -If no plans for surgery, resume plavix and transition back to Coumadin Nurse practitioner note has been reviewed by physician. Signing provider agrees with the documented findings, assessment, and plan of care. Objective - Vital Signs Vital signs: Vital Signs Temp 97.7 F 05/15/20 12:10 Pulse 62 05/15/20 12:10 Resp 18 05/15/20 12:10 BP 136/64 05/15/20 12:10 Pulse Ox 96 05/15/20 12:10 Intake & Output 05/14/20 05/15/20 05/15/20 18:59 06:59 18:59 Intake Total 30 121.066 20 Output Total 8411 079 1430 Balance -1620 -678.934 -3080 Weight 97.7 kg Intake: IV 30 20 Invasive Line 1 30 20 Intake, IV Titration 121.066 Amount Heparin Sod,Pork in 0.45% 121.066 NaCl 25,000 unit In 0.45 % NaCl 1 250ml.bag @ 10.2 UNITS/KG/HR 10.047 mls/ hr IV .Q24H [facility] Rx#: [id number] Output: Urine 006 879 9537 Uretheral (Beard) 2500 Stool 900 400 600 Other: Voiding Method Indwelling Catheter Indwelling Catheter Urinal # Bowel Movements 1 300 - Labs CBC & Chem 7: 05/15/20 06:07 05/15/20 06:07 Labs: Abnormal Lab Results - Last 24 Hours (Table) 05/14/20 05/14/20 05/14/20 Range/Units 16:56 17:04 20:58 RBC (4.30-5.90) m/uL Hgb (13.0-17.5) gm/dL Hct (39.0-53.0) % Plt Count (150-450) k/uL PT 14.3 H (9.0-12.0) sec INR 1.4 H (<1.2) APTT (22.0-30.0) sec Sodium (137-145) mmol/L BUN (9-20) mg/dL POC Glucose (mg/dL) 123 H 111 H (75-99) mg/dL Calcium (8.4-10.2) mg/dL Total Bilirubin (0.2-1.3) mg/dL Total Protein (6.3-8.2) g/dL 05/15/20 05/15/20 05/15/20 Range/Units 05:00 06:07 06:07 RBC 3.44 L (4.30-5.90) m/uL Hgb 11.1 L (13.0-17.5) gm/dL Hct 32.8 L (39.0-53.0) % Plt Count 106 L (150-450) k/uL PT (9.0-12.0) sec INR (<1.2) APTT 39.3 H (22.0-30.0) sec Sodium 135 L (137-145) mmol/L BUN 30 H (9-20) mg/dL POC Glucose (mg/dL) (75-99) mg/dL Calcium 7.7 L (8.4-10.2) mg/dL Total Bilirubin 3.9 H (0.2-1.3) mg/dL Total Protein 6.1 L (6.3-8.2) g/dL 05/15/20 Range/Units 11:38 RBC (4.30-5.90) m/uL Hgb (13.0-17.5) gm/dL Hct (39.0-53.0) % Plt Count (150-450) k/uL PT (9.0-12.0) sec INR (<1.2) APTT 51.6 H (22.0-30.0) sec Sodium (137-145) mmol/L BUN (9-20) mg/dL POC Glucose (mg/dL) (75-99) mg/dL Calcium (8.4-10.2) mg/dL Total Bilirubin (0.2-1.3) mg/dL Total Protein (6.3-8.2) g/dL <Riccardo Meier - Last Filed: 05/15/20 17:05> Subjective No further recommendations from a cardiology standpoint. As before patient is at elevated risk given multiple comorbidities however he has good exercise tolerance and is able to do 4 mets of activity without any angina and his ejection fraction has improved to 45-50%. He no longer has any left ventricular thrombus and is on the Coumadin mainly for his history of atrial fibrillation. Therefore patient will be moderate risk for possible ventral hernia repair. Please call with any questions. Restart Plavix and Coumadin when able after surgery. Riccardo Meier, Objective - Vital Signs Vital signs: Vital Signs Temp 97.7 F 05/15/20 12:10 Pulse 62 05/15/20 12:10 Resp 18 05/15/20 12:10 BP 136/64 05/15/20 12:10 Pulse Ox 96 05/15/20 12:10 Intake & Output 05/14/20 05/15/20 05/15/20 18:59 06:59 18:59 Intake Total 30 121.066 20 Output Total 2550 570 6997 Balance -1620 -678.934 -3080 Weight 97.7 kg Intake: IV 30 20 Invasive Line 1 30 20 Intake, IV Titration 121.066 Amount Heparin Sod,Pork in 0.45% 121.066 NaCl 25,000 unit In 0.45 % NaCl 1 250ml.bag @ 10.2 UNITS/KG/HR 10.047 mls/ hr IV .Q24H [facility] Rx#: [id number] Output: Urine 472 850 1512 Uretheral (Beard) 2500 Stool 900 400 600 Other: Voiding Method Indwelling Catheter Indwelling Catheter Urinal # Bowel Movements 1 300 - Labs CBC & Chem 7: 05/15/20 06:07 05/15/20 06:07 Labs: Abnormal Lab Results - Last 24 Hours (Table) 05/14/20 05/14/20 05/14/20 Range/Units 16:56 17:04 20:58 RBC (4.30-5.90) m/uL Hgb (13.0-17.5) gm/dL Hct (39.0-53.0) % Plt Count (150-450) k/uL PT 14.3 H (9.0-12.0) sec INR 1.4 H (<1.2) APTT (22.0-30.0) sec Sodium (137-145) mmol/L BUN (9-20) mg/dL POC Glucose (mg/dL) 123 H 111 H (75-99) mg/dL Calcium (8.4-10.2) mg/dL Total Bilirubin (0.2-1.3) mg/dL Total Protein (6.3-8.2) g/dL 05/15/20 05/15/20 05/15/20 Range/Units 05:00 06:07 06:07 RBC 3.44 L (4.30-5.90) m/uL Hgb 11.1 L (13.0-17.5) gm/dL Hct 32.8 L (39.0-53.0) % Plt Count 106 L (150-450) k/uL PT (9.0-12.0) sec INR (<1.2) APTT 39.3 H (22.0-30.0) sec Sodium 135 L (137-145) mmol/L BUN 30 H (9-20) mg/dL POC Glucose (mg/dL) (75-99) mg/dL Calcium 7.7 L (8.4-10.2) mg/dL Total Bilirubin 3.9 H (0.2-1.3) mg/dL Total Protein 6.1 L (6.3-8.2) g/dL 05/15/20 05/15/20 Range/Units 11:38 16:50 RBC (4.30-5.90) m/uL Hgb (13.0-17.5) gm/dL Hct (39.0-53.0) % Plt Count (150-450) k/uL PT (9.0-12.0) sec INR (<1.2) APTT 51.6 H (22.0-30.0) sec Sodium (137-145) mmol/L BUN (9-20) mg/dL POC Glucose (mg/dL) 115 H (75-99) mg/dL Calcium (8.4-10.2) mg/dL Total Bilirubin (0.2-1.3) mg/dL Total Protein (6.3-8.2) g/dL
[2020-05-15] MEDS: HEPARIN SOD,PORK IN 0.45% NACL 25,000 UNIT in 0.45% NACL 1 250ML.BAG IV SCH (15:30)
[2020-05-15 16:51] LABS: Glucose,Whole Blood 115 mg/dL (75-99)
[2020-05-15 20:31] LABS: Glucose,Whole Blood 124 mg/dL (75-99)
[2020-05-15] MEDS: INSULIN DETEMIR (LEVEMIR) 100 UNIT/ML SYR SQ SCH (21:40)
[2020-05-16 06:33] LABS: Glucose,Whole Blood 92 mg/dL (75-99)
[2020-05-16] MEDS: INSULIN ASPART (NovoLOG) 100 UNIT/ML VIAL SQ SCH ×3 (06:55→16:58)
[2020-05-16 07:57] LABS: ALT 19 U/L (4-49); AST 36 U/L (17-59); African American GFR (CKD) >90 (>60 ml/min/1.73 sqM); Alkaline Phosphatase 49 U/L (38-126); Anion Gap 6 mmol/L; Blood Urea Nitrogen 13 mg/dL (9-20); Calcium 7.8 mg/dL (8.4-10.2); Carbon Dioxide 24 mmol/L (22-30); Chloride 108 mmol/L (98-107); Glucose 85 mg/dL (74-99); Non-African American GFR(CKD) >90 (>60 ml/min/1.73 sqM); Potassium 3.2 mmol/L (3.5-5.1); Sodium 138 mmol/L (137-145); Total Bilirubin 1.5 mg/dL (0.2-1.3); Total Protein 5.3 g/dL (6.3-8.2)
[2020-05-16 08:26] LABS: Basophils % (A) 1 %; Eosinophils # (A) 0.1 k/uL (0-0.7); Eosinophils % (A) 2 %; HCT 29.8 % (39.0-53.0); HGB 10.2 gm/dL (13.0-17.5); Lymphocytes # (A) 1.2 k/uL (1.0-4.8); Lymphocytes % (A) 25 %; MCH 33.6 pg (25.0-35.0); MCHC 34.4 g/dL (31.0-37.0); MCV 97.7 fL (80.0-100.0); Mean Platelet Volume 7.4; Monocytes # (A) 0.3 k/uL (0-1.0); Monocytes % (A) 6 %; Neutrophils # (A) 3.1 k/uL (1.3-7.7); Neutrophils % (A) 64 %; RBC 3.05 m/uL (4.30-5.90); RDW 14.1 % (11.5-15.5); WBC 4.9 k/uL (3.8-10.6)
[2020-05-16] MEDS: SODIUM CHLORIDE 0.9% 1,000 ML IV SCH ×2 (09:58→16:57)
[2020-05-16] MEDS: carvediloL 6.25 MG TAB PO SCH ×2 (09:58→17:01)
[2020-05-16] MEDS: PANTOPRAZOLE 40 MG/10 ML VIAL IV SCH (09:58)
[2020-05-16] MEDS: ATORVASTATIN 40 MG TAB PO SCH (10:02)
[2020-05-16] MEDS ORDERED: POTASSIUM CHLORIDE ER 20 MEQ TAB.ER PO STA (10:07)
--- NOTE | 2020-05-16 10:09 | P.PN ---
Subjective Progress Note Date: 05/16/20 CHIEF COMPLAINT: Large abdominal wall hernia HISTORY OF PRESENT ILLNESS: Patient seen and examined with Dr. Nguyen. Patient is being followed for a large ventral hernia. Dr. Nguyen had reduced hernia bedside on admission. Patient's NG tube was removed yesterday. He is tolerating a full liquid diet. He is having bowel movements. His decrease in abdominal pain. We'll advance diet to regular. He is afebrile. WBC 4.9 hemoglobin 10.2 potassium 3.2. Total bili 1.5 PHYSICAL EXAM: VITAL SIGNS: Reviewed. GENERAL: Well-developed in no acute distress. HEENT: No sclera icterus. Extraocular movements grossly intact. Moist buccal mucosa. Head is atraumatic, normocephalic. ABDOMEN: Soft. Nontender. Large abdominal wall hernia NEUROLOGIC: Alert and oriented. Cranial nerves II through XII grossly intact. ASSESSMENT: 1. 2 large ventral hernias with incarcerated single loop of small bowel and small hernia on the left side that is producing a mechanical small bowel obstruction. 2. History of intracardiac thrombus on Coumadin at home 3. History of coronary disease with prior CABG and cardiac stents 4. History of ischemic cardiomyopathy with AICD 5. Acute kidney injury secondary to dehydration 6. Diabetes mellitus type 2 7. Hypokalemia PLAN: -Advance diet to regular diet -continue to monitor patient to make sure that he is tolerating regular diet. -Continue IV heparin for anticoagulation for now in case patient will require hernia repair surgery -Give potassium 40 mEq 1 -Appreciate medicine and cardiology recommendations Physician Professor Of Musicology note has been reviewed by physician. Signing provider agrees with the documented findings, assessment, and plan of care. Objective - Vital Signs Vital signs: Vital Signs Temp 97.5 F L 05/16/20 03:52 Pulse 72 05/16/20 03:52 Resp 16 05/16/20 03:52 BP 130/62 05/16/20 03:52 Pulse Ox 96 05/16/20 03:52 Intake & Output 05/15/20 05/16/20 05/16/20 18:59 06:59 18:59 Intake Total 744.246 Output Total 3700 1760 Balance -2955.754 -1760 Intake: IV 30 Invasive Line 1 30 Intake, IV Titration 114.246 Amount Heparin Sod,Pork in 0.45% 114.246 NaCl 25,000 unit In 0.45 % NaCl 1 250ml.bag @ 10.2 UNITS/KG/HR 10.047 mls/ hr IV .Q24H [facility] Rx#: [id number] Oral 600 Output: Urine 3100 1760 Uretheral (Beard) 2500 Stool 600 Other: Voiding Method Urinal Urinal # Voids 1 # Bowel Movements 3 - Labs CBC & Chem 7: 05/16/20 05:57 05/16/20 05:57 Labs: Abnormal Lab Results - Last 24 Hours (Table) 05/15/20 05/15/20 05/15/20 Range/Units 11:38 16:50 20:30 RBC (4.30-5.90) m/uL Hgb (13.0-17.5) gm/dL Hct (39.0-53.0) % APTT 51.6 H (22.0-30.0) sec Potassium (3.5-5.1) mmol/L Chloride (98-107) mmol/L POC Glucose (mg/dL) 115 H 124 H (75-99) mg/dL Calcium (8.4-10.2) mg/dL Total Bilirubin (0.2-1.3) mg/dL Total Protein (6.3-8.2) g/dL Albumin (3.5-5.0) g/dL 05/16/20 05/16/20 05/16/20 Range/Units 05:57 05:57 05:57 RBC 3.05 L (4.30-5.90) m/uL Hgb 10.2 L (13.0-17.5) gm/dL Hct 29.8 L (39.0-53.0) % APTT 60.1 H (22.0-30.0) sec Potassium 3.2 L (3.5-5.1) mmol/L Chloride 108 H (98-107) mmol/L POC Glucose (mg/dL) (75-99) mg/dL Calcium 7.8 L (8.4-10.2) mg/dL Total Bilirubin 1.5 H (0.2-1.3) mg/dL Total Protein 5.3 L (6.3-8.2) g/dL Albumin 3.0 L (3.5-5.0) g/dL
[2020-05-16 11:10] LABS: Platelet Count 97 k/uL (150-450)
[2020-05-16 11:12] LABS: Anisocytosis (M) Present
--- NOTE | 2020-05-16 11:15 | P.PN ---
Subjective Progress Note Date: 05/16/20 Principal diagnosis: Incarcerated abdominal hernia with SBO Patient seen and examined at bedside. Patient was awakened from sleep. He should is resting comfortably. Patient denies chest pain, shortness of breath, nausea, vomiting, abdominal pain, diarrhea, or constipation. Objective - Vital Signs Vital signs: Vital Signs Temp 98 F 05/16/20 08:15 Pulse 55 L 05/16/20 08:15 Resp 17 05/16/20 08:15 BP 111/54 05/16/20 08:15 Pulse Ox 96 05/16/20 08:15 Intake & Output 05/15/20 05/16/20 05/16/20 18:59 06:59 18:59 Intake Total 744.246 Output Total 3700 1760 Balance -2955.754 -1760 Intake: IV 30 Invasive Line 1 30 Intake, IV Titration 114.246 Amount Heparin Sod,Pork in 0.45% 114.246 NaCl 25,000 unit In 0.45 % NaCl 1 250ml.bag @ 10.2 UNITS/KG/HR 10.047 mls/ hr IV .Q24H [facility] Rx#: [id number] Oral 600 Output: Urine 3100 1760 Uretheral (Beard) 2500 Stool 600 Other: Voiding Method Urinal Urinal # Voids 1 # Bowel Movements 3 - Exam General: [non toxic], [no distress], [appears at stated age] Derm: [warm], [dry] Head: [atraumatic], [normocephalic], [symmetric] Eyes: [EOMI], [no lid lag], [anicteric sclera] Mouth: [no lip lesion], [mucus membranes moist] Cardiovascular: [S1S2 reg], [no murmur], [positive posterior tibial pulse bilateral], Lungs: [CTA bilateral], [no rhonchi, no rales] , [no accessory muscle use] Abdominal: [soft], [ nontender to palpation], [no guarding], [no appreciable organomegaly] Ext: [no gross muscle atrophy], [no edema], [no contractures] Neuro: [ CN II-XI grossly intact], [no focal neuro deficits] Psych: [Alert], [oriented], [appropriate affect] - Labs CBC & Chem 7: 05/16/20 05:57 05/16/20 05:57 Labs: Abnormal Lab Results - Last 24 Hours (Table) 05/15/20 05/15/20 05/15/20 Range/Units 11:38 16:50 20:30 RBC (4.30-5.90) m/uL Hgb (13.0-17.5) gm/dL Hct (39.0-53.0) % APTT 51.6 H (22.0-30.0) sec Potassium (3.5-5.1) mmol/L Chloride (98-107) mmol/L POC Glucose (mg/dL) 115 H 124 H (75-99) mg/dL Calcium (8.4-10.2) mg/dL Total Bilirubin (0.2-1.3) mg/dL Total Protein (6.3-8.2) g/dL Albumin (3.5-5.0) g/dL 05/16/20 05/16/20 05/16/20 Range/Units 05:57 05:57 05:57 RBC 3.05 L (4.30-5.90) m/uL Hgb 10.2 L (13.0-17.5) gm/dL Hct 29.8 L (39.0-53.0) % APTT 60.1 H (22.0-30.0) sec Potassium 3.2 L (3.5-5.1) mmol/L Chloride 108 H (98-107) mmol/L POC Glucose (mg/dL) (75-99) mg/dL Calcium 7.8 L (8.4-10.2) mg/dL Total Bilirubin 1.5 H (0.2-1.3) mg/dL Total Protein 5.3 L (6.3-8.2) g/dL Albumin 3.0 L (3.5-5.0) g/dL Assessment and Plan Assessment: 1. Incarcerated abdominal hernia with mechanical small bowel obstruction -Surgery following -Diet advanced to regular 2. History of Intracardiac thrombus treated with Coumadin as an outpatient -Patient is currently on heparin for possible surgical intervention -If patient is to have surgery then have heparin gtt to be stopped 6 hours before surgery, then re-started with bridging back to coumadin 4-6 hours after surgery. -Cardiology recommendations appreciated 3. Acute kidney injury, prerenal, due to dehydration -Continue with IV fluids, monitor I/Os, daily weights. 4. Hypokalemia Replace with KCl Check magnesium level continue to trend potassium level 5. Chronic conditions: Hypertension, hyperlipidemia, type II DM, CAD -Continue with Levemir 25 units daily at bedtime (routinely takes 50 units) with insulin sliding scale and blood glucose monitoring -Continue with Lipitor, Coreg, Imdur -Hold off on spironolactone and Plavix until post-op 6. GI DVT prophylaxis Time with Patient: Greater than 30
[2020-05-16 11:45] LABS: Glucose,Whole Blood 106 mg/dL (75-99)
[2020-05-16 16:48] LABS: Glucose,Whole Blood 132 mg/dL (75-99)
[2020-05-16] MEDS: HEPARIN SOD,PORK IN 0.45% NACL 25,000 UNIT in 0.45% NACL 1 250ML.BAG IV SCH (17:03)
[2020-05-16 21:08] LABS: Glucose,Whole Blood 151 mg/dL (75-99)
[2020-05-16] MEDS: INSULIN DETEMIR (LEVEMIR) 100 UNIT/ML SYR SQ SCH (22:01)
[2020-05-17] MEDS: HYDROmorphone 1 MG/ML 1 ML SYRINGE IVP PRN ×3 (02:09→19:48)
[2020-05-17] MEDS: SODIUM CHLORIDE 0.9% 1,000 ML IV SCH ×4 (03:46→20:54)
[2020-05-17 06:27] LABS: Glucose,Whole Blood 144 mg/dL (75-99)
[2020-05-17] MEDS: INSULIN ASPART (NovoLOG) 100 UNIT/ML VIAL SQ SCH ×3 (06:35→17:20)
[2020-05-17] MEDS: carvediloL 6.25 MG TAB PO SCH ×2 (06:37→17:20)
[2020-05-17 06:46] LABS: Basophils # (A) 0.1 k/uL (0-0.2); Basophils % (A) 1 %; Eosinophils # (A) 0.1 k/uL (0-0.7); Eosinophils % (A) 2 %; HCT 30.1 % (39.0-53.0); HGB 10.2 gm/dL (13.0-17.5); Lymphocytes # (A) 1.1 k/uL (1.0-4.8); Lymphocytes % (A) 21 %; MCHC 33.9 g/dL (31.0-37.0); MCV 97.2 fL (80.0-100.0); Mean Platelet Volume 7.5; Monocytes # (A) 0.3 k/uL (0-1.0); Monocytes % (A) 6 %; Neutrophils # (A) 3.5 k/uL (1.3-7.7); Neutrophils % (A) 66 %; Platelet Count 107 k/uL (150-450); RDW 14.1 % (11.5-15.5); WBC 5.4 k/uL (3.8-10.6)
[2020-05-17 07:22] LABS: ALT 25 U/L (4-49); AST 39 U/L (17-59); African American GFR (CKD) >90 (>60 ml/min/1.73 sqM); Albumin 3.1 g/dL (3.5-5.0); Alkaline Phosphatase 60 U/L (38-126); Anion Gap 3 mmol/L; Blood Urea Nitrogen 8 mg/dL (9-20); Carbon Dioxide 26 mmol/L (22-30); Chloride 109 mmol/L (98-107); Glucose 138 mg/dL (74-99); Magnesium 1.6 mg/dL (1.6-2.3); Non-African American GFR(CKD) >90 (>60 ml/min/1.73 sqM); Potassium 4.1 mmol/L (3.5-5.1); Sodium 138 mmol/L (137-145); Total Bilirubin 1.2 mg/dL (0.2-1.3); Total Protein 5.5 g/dL (6.3-8.2)
[2020-05-17] MEDS: ATORVASTATIN 40 MG TAB PO SCH (09:24)
[2020-05-17] MEDS: HEPARIN SOD,PORK IN 0.45% NACL 25,000 UNIT in 0.45% NACL 1 250ML.BAG IV SCH (09:25)
[2020-05-17] MEDS: PANTOPRAZOLE 40 MG TABLET PO SCH (09:25)
--- NOTE | 2020-05-17 10:43 | P.PN ---
Subjective Principal diagnosis: Incarcerated abdominal hernia with SBO. Patient seen and examined at bedside. Patient states that his abdominal hernias larger than yesterday. Patient denies chest pain, shortness of breath, nausea, vomiting, abdominal pain, diarrhea, or constipation. Objective - Vital Signs Vital signs: Vital Signs Temp 98.4 F 05/17/20 08:00 Pulse 54 L 05/17/20 08:00 Resp 18 05/17/20 08:00 BP 145/65 05/17/20 08:00 Pulse Ox 97 05/17/20 08:00 Intake & Output 05/16/20 05/17/20 05/17/20 18:59 06:59 18:59 Intake Total 490 760 797.169 Output Total 400 Balance 490 360 797.169 Weight 97.3 kg Intake: Intake, IV Titration 250 520 197.169 Amount Heparin Sod,Pork in 0.45% 250 197.169 NaCl 25,000 unit In 0.45 % NaCl 1 250ml.bag @ 10.2 UNITS/KG/HR 10.047 mls/ hr IV .Q24H [facility] Rx#: [id number] Sodium Chloride 0.9% 1, 520 000 ml @ 130 mls/hr IV . Q7H42M [facility] Rx#:[id number] Oral 240 240 600 Output: Urine 400 Other: Voiding Method Urinal # Voids 3 3 - Exam General: [non toxic], [no distress], [appears at stated age] Derm: [warm], [dry] Head: [atraumatic], [normocephalic], [symmetric] Eyes: [EOMI], [no lid lag], [anicteric sclera] Mouth: [no lip lesion], [mucus membranes moist] Cardiovascular: [S1S2 reg], [no murmur], [positive posterior tibial pulse bilateral], Lungs: [CTA bilateral], [no rhonchi, no rales] , [no accessory muscle use] Abdominal: [soft], [ nontender to palpation large reducible abdominal hernia], [no guarding], [no appreciable organomegaly] Ext: [no gross muscle atrophy], [no edema], [no contractures] Neuro: [ CN II-XI grossly intact], [no focal neuro deficits] Psych: [Alert], [oriented], [appropriate affect] - Labs CBC & Chem 7: 08/22/20 05:49 05/17/20 05:49 Labs: Abnormal Lab Results - Last 24 Hours (Table) 05/16/20 05/16/20 05/16/20 Range/Units 05:57 11:43 16:46 RBC 3.05 L (4.30-5.90) m/uL Hgb 10.2 L (13.0-17.5) gm/dL Hct 29.8 L (39.0-53.0) % Plt Count 97 L (150-450) k/uL APTT (22.0-30.0) sec Chloride (98-107) mmol/L BUN (9-20) mg/dL Glucose (74-99) mg/dL POC Glucose (mg/dL) 106 H 132 H (75-99) mg/dL Calcium (8.4-10.2) mg/dL Total Protein (6.3-8.2) g/dL Albumin (3.5-5.0) g/dL 05/16/20 05/17/20 05/17/20 Range/Units 21:06 05:49 05:49 RBC 3.10 L (4.30-5.90) m/uL Hgb 10.2 L (13.0-17.5) gm/dL Hct 30.1 L (39.0-53.0) % Plt Count 107 L (150-450) k/uL APTT (22.0-30.0) sec Chloride 109 H (98-107) mmol/L BUN 8 L (9-20) mg/dL Glucose 138 H (74-99) mg/dL POC Glucose (mg/dL) 151 H (75-99) mg/dL Calcium 8.0 L (8.4-10.2) mg/dL Total Protein 5.5 L (6.3-8.2) g/dL Albumin 3.1 L (3.5-5.0) g/dL 05/17/20 05/17/20 Range/Units 05:49 06:26 RBC (4.30-5.90) m/uL Hgb (13.0-17.5) gm/dL Hct (39.0-53.0) % Plt Count (150-450) k/uL APTT 50.8 H (22.0-30.0) sec Chloride (98-107) mmol/L BUN (9-20) mg/dL Glucose (74-99) mg/dL POC Glucose (mg/dL) 144 H (75-99) mg/dL Calcium (8.4-10.2) mg/dL Total Protein (6.3-8.2) g/dL Albumin (3.5-5.0) g/dL Assessment and Plan Assessment: 1. Incarcerated abdominal hernia with mechanical small bowel obstruction i mproved -Surgery following -Diet advanced to regular 2. History of Intracardiac thrombus treated with Coumadin as an outpatient -Patient is currently on heparin for possible surgical intervention -If patient is to have surgery then have heparin gtt to be stopped 6 hours before surgery, then re-started with bridging back to coumadin 4-6 hours after surgery. -Cardiology recommendations appreciated -If patient is not to have surgery recommend restarting Coumadin 3. Acute kidney injury, prerenal, due to dehydration -Continue with IV fluids, monitor I/Os, daily weights. 4. Hypokalemia resolved Magnesium is at 1.6 which is the lower end of normal And oral magnesium daily 5. Chronic conditions: Hypertension, hyperlipidemia, type II DM, CAD -Continue with Levemir 25 units daily at bedtime (routinely takes 50 units) with insulin sliding scale and blood glucose monitoring -Continue with Lipitor, Coreg, Imdur -Hold off on spironolactone and Plavix until post-op 6. GI DVT prophylaxis
--- NOTE | 2020-05-17 11:41 | P.PN ---
Subjective Progress Note Date: 05/17/20 Principal diagnosis: Abdominal wall hernia Patient doing better this morning. Says after his hernia was reduced yesterday his pain did increase but is back down now. He is tolerating the liquid portion of his regular diet. Mild nausea. Objective - Vital Signs Vital signs: Vital Signs Temp 98.4 F 05/17/20 08:00 Pulse 54 L 05/17/20 08:00 Resp 18 05/17/20 08:00 BP 145/65 05/17/20 08:00 Pulse Ox 97 05/17/20 08:00 Intake & Output 05/16/20 05/17/20 05/17/20 18:59 06:59 18:59 Intake Total 490 760 797.169 Output Total 400 600 Balance 490 360 197.169 Weight 97.3 kg Intake: Intake, IV Titration 250 520 197.169 Amount Heparin Sod,Pork in 0.45% 250 197.169 NaCl 25,000 unit In 0.45 % NaCl 1 250ml.bag @ 10.2 UNITS/KG/HR 10.047 mls/ hr IV .Q24H [facility] Rx#: [id number] Sodium Chloride 0.9% 1, 520 000 ml @ 130 mls/hr IV . Q7H42M [facility] Rx#:[id number] Oral 240 240 600 Output: Urine 400 Stool 600 Other: Voiding Method Urinal Urinal # Voids 3 3 - Exam Abdomen: Soft, nondistended, hernia partially reducible, minimal tenderness - Labs CBC & Chem 7: 05/17/20 05:49 05/17/20 05:49 Labs: Abnormal Lab Results - Last 24 Hours (Table) 05/16/20 05/16/20 05/16/20 Range/Units 11:43 16:46 21:06 RBC (4.30-5.90) m/uL Hgb (13.0-17.5) gm/dL Hct (39.0-53.0) % Plt Count (150-450) k/uL APTT (22.0-30.0) sec Chloride (98-107) mmol/L BUN (9-20) mg/dL Glucose (74-99) mg/dL POC Glucose (mg/dL) 106 H 132 H 151 H (75-99) mg/dL Calcium (8.4-10.2) mg/dL Total Protein (6.3-8.2) g/dL Albumin (3.5-5.0) g/dL 05/17/20 05/17/20 05/17/20 Range/Units 05:49 05:49 05:49 RBC 3.10 L (4.30-5.90) m/uL Hgb 10.2 L (13.0-17.5) gm/dL Hct 30.1 L (39.0-53.0) % Plt Count 107 L (150-450) k/uL APTT 50.8 H (22.0-30.0) sec Chloride 109 H (98-107) mmol/L BUN 8 L (9-20) mg/dL Glucose 138 H (74-99) mg/dL POC Glucose (mg/dL) (75-99) mg/dL Calcium 8.0 L (8.4-10.2) mg/dL Total Protein 5.5 L (6.3-8.2) g/dL Albumin 3.1 L (3.5-5.0) g/dL 05/17/20 Range/Units 06:26 RBC (4.30-5.90) m/uL Hgb (13.0-17.5) gm/dL Hct (39.0-53.0) % Plt Count (150-450) k/uL APTT (22.0-30.0) sec Chloride (98-107) mmol/L BUN (9-20) mg/dL Glucose (74-99) mg/dL POC Glucose (mg/dL) 144 H (75-99) mg/dL Calcium (8.4-10.2) mg/dL Total Protein (6.3-8.2) g/dL Albumin (3.5-5.0) g/dL Assessment and Plan (1) Ventral hernia Narrative/Plan: Patient had 2 fascial defects. The larger fascial defect still on examination has a partially incarcerated hernia. The area that was likely incarcerated the patient agrees has not re-herniated. Continue diet as tolerated. Will add abdominal binder. Patient is interested in repair of this hernia during this hospitalization. We'll discuss further with Dr. Nguyen. Current Visit: Yes Status: Acute Code(s): K43.9 - VENTRAL HERNIA WITHOUT OBSTRUCTION OR GANGRENE SNOMED Code(s): 623068667
[2020-05-17 11:54] LABS: Glucose,Whole Blood 148 mg/dL (75-99)
[2020-05-17] MEDS: MAGNESIUM OXIDE 400 MG TAB PO SCH ×2 (12:10→20:54)
[2020-05-17 16:56] LABS: Glucose,Whole Blood 110 mg/dL (75-99)
[2020-05-17 20:45] LABS: Glucose,Whole Blood 160 mg/dL (75-99)
[2020-05-17] MEDS: INSULIN DETEMIR (LEVEMIR) 100 UNIT/ML SYR SQ SCH (20:48)
[2020-05-18] MEDS: SODIUM CHLORIDE 0.9% 1,000 ML IV SCH ×2 (06:06→17:42)
[2020-05-18 06:17] LABS: Basophils % (A) 1 %; Eosinophils # (A) 0.1 k/uL (0-0.7); Eosinophils % (A) 3 %; HCT 30.2 % (39.0-53.0); HGB 10.6 gm/dL (13.0-17.5); Lymphocytes # (A) 1.2 k/uL (1.0-4.8); Lymphocytes % (A) 29 %; MCH 33.8 pg (25.0-35.0); MCV 96.7 fL (80.0-100.0); Mean Platelet Volume 7.1; Monocytes # (A) 0.2 k/uL (0-1.0); Monocytes % (A) 6 %; Neutrophils # (A) 2.3 k/uL (1.3-7.7); Neutrophils % (A) 58 %; Platelet Count 105 k/uL (150-450); RBC 3.12 m/uL (4.30-5.90); RDW 14.5 % (11.5-15.5)
[2020-05-18 06:31] LABS: Glucose,Whole Blood 119 mg/dL (75-99)
[2020-05-18] MEDS: INSULIN ASPART (NovoLOG) 100 UNIT/ML VIAL SQ SCH ×3 (06:31→17:15)
[2020-05-18] MEDS: carvediloL 6.25 MG TAB PO SCH ×2 (06:39→17:41)
[2020-05-18 06:40] LABS: ALT 28 U/L (4-49); AST 43 U/L (17-59); African American GFR (CKD) >90 (>60 ml/min/1.73 sqM); Alkaline Phosphatase 60 U/L (38-126); Anion Gap 7 mmol/L; Blood Urea Nitrogen 5 mg/dL (9-20); Calcium 8.3 mg/dL (8.4-10.2); Carbon Dioxide 26 mmol/L (22-30); Chloride 106 mmol/L (98-107); Glucose 108 mg/dL (74-99); Magnesium 1.5 mg/dL (1.6-2.3); Non-African American GFR(CKD) >90 (>60 ml/min/1.73 sqM); Potassium 3.6 mmol/L (3.5-5.1); Sodium 139 mmol/L (137-145); Total Bilirubin 1.2 mg/dL (0.2-1.3); Total Protein 5.4 g/dL (6.3-8.2)
[2020-05-18] MEDS: PANTOPRAZOLE 40 MG TABLET PO SCH (09:38)
[2020-05-18] MEDS: MAGNESIUM OXIDE 400 MG TAB PO SCH ×2 (09:38→20:47)
[2020-05-18] MEDS: HEPARIN SOD,PORK IN 0.45% NACL 25,000 UNIT in 0.45% NACL 1 250ML.BAG IV SCH (09:38)
[2020-05-18] MEDS: ATORVASTATIN 40 MG TAB PO SCH (09:38)
--- NOTE | 2020-05-18 10:16 | P.PN ---
Subjective Progress Note Date: 05/18/20 No new complaints today. Surgery still contemplating hernia repair surgery. Objective - Vital Signs Vital signs: Vital Signs Temp 98.4 F 05/18/20 08:00 Pulse 68 05/18/20 08:00 Resp 20 05/18/20 08:00 BP 152/68 05/18/20 08:00 Pulse Ox 97 05/18/20 08:00 Intake & Output 05/17/20 05/18/20 05/18/20 18:59 06:59 18:59 Intake Total 1397.169 490 Output Total 600 600 Balance 797.169 -110 Weight 95 kg Intake: Intake, IV Titration 197.169 250 Amount Heparin Sod,Pork in 0.45% 197.169 250 NaCl 25,000 unit In 0.45 % NaCl 1 250ml.bag @ 10.2 UNITS/KG/HR 10.047 mls/ hr IV .Q24H [facility] Rx#: [id number] Oral 1200 240 Output: Stool 600 600 Other: Voiding Method Urinal Urinal # Voids 1 - Exam Gen: awake, alert HEENT: normocephalic, atraumatic, good hearing acuity, moist mucous membranes, +NGT draining feculent material Resp: CTAB, good air exchange, no accessory muscle use, no wheezes, crackles, rhonchi CVS: good distal perfusion x 4, RRR, no murmurs, clicks, gallops GI: soft, NTTP, ND, large incisional abdominal hernia : no SPT, no CVAT, cunningham catheter not present MSK: no pitting edema, no clubbing Neuro: non-focal, no sensory deficits, appropriate tone Psych: cooperative, euthymic mood - Labs CBC & Chem 7: 05/18/20 05:46 05/18/20 05:46 Labs: Abnormal Lab Results - Last 24 Hours (Table) 05/17/20 05/17/20 05/17/20 Range/Units 11:52 16:54 20:43 RBC (4.30-5.90) m/uL Hgb (13.0-17.5) gm/dL Hct (39.0-53.0) % Plt Count (150-450) k/uL APTT (22.0-30.0) sec BUN (9-20) mg/dL Glucose (74-99) mg/dL POC Glucose (mg/dL) 148 H 110 H 160 H (75-99) mg/dL Calcium (8.4-10.2) mg/dL Magnesium (1.6-2.3) mg/dL Total Protein (6.3-8.2) g/dL Albumin (3.5-5.0) g/dL 05/18/20 05/18/20 05/18/20 Range/Units 05:46 05:46 05:46 RBC 3.12 L (4.30-5.90) m/uL Hgb 10.6 L (13.0-17.5) gm/dL Hct 30.2 L (39.0-53.0) % Plt Count 105 L (150-450) k/uL APTT 38.9 H (22.0-30.0) sec BUN 5 L (9-20) mg/dL Glucose 108 H (74-99) mg/dL POC Glucose (mg/dL) (75-99) mg/dL Calcium 8.3 L (8.4-10.2) mg/dL Magnesium 1.5 L (1.6-2.3) mg/dL Total Protein 5.4 L (6.3-8.2) g/dL Albumin 3.0 L (3.5-5.0) g/dL 05/18/20 Range/Units 06:29 RBC (4.30-5.90) m/uL Hgb (13.0-17.5) gm/dL Hct (39.0-53.0) % Plt Count (150-450) k/uL APTT (22.0-30.0) sec BUN (9-20) mg/dL Glucose (74-99) mg/dL POC Glucose (mg/dL) 119 H (75-99) mg/dL Calcium (8.4-10.2) mg/dL Magnesium (1.6-2.3) mg/dL Total Protein (6.3-8.2) g/dL Albumin (3.5-5.0) g/dL Assessment and Plan Assessment: 1. Incarcerated Abdominal Hernia with SBO 2. Elevated Troponin 3. History of intra-cardiac thrombus on Coumadin 4. CAD 5. MITZI 6. HTN 7. HLD 8. DM II 70 year old man with history of CAD/HTN/HLD/DMII, intracardiac thrombus presented with ventral hernia with incarceration causing SBO, was admitted to surgery service and medicine asked for consultation and medical management. Incarcerated abdominal hernia with mechanical small bowel obstruction -As per the surgical service -Patient currently on intermittent suction and nothing by mouth Intracardiac thrombus, on Coumadin -heparin gtt to be stopped 6 hours before surgery, then re-started with bridging back to coumadin 4-6 hours after surgery. -continue heparin gtt, following surgery, can start lovenox 100mg BID to bridge back to coumadin Acute kidney injury, prerenal, due to dehydration -Continue with IV fluids, monitor I/Os, daily weights. Chronic conditions: Hypertension, hyperlipidemia, type II DM, CAD -Continue with Levemir 25 units daily at bedtime (routinely takes 50 units) with insulin sliding scale and blood glucose monitoring -Continue with Lipitor, Coreg, Imdur -Hold off on spironolactone and Plavix until post-op
--- NOTE | 2020-05-18 10:51 | P.PN ---
Subjective Progress Note Date: 05/18/20 Principal diagnosis: Abdominal wall hernia Patient feels better today. Says he has very little pain currently. Tolerating full liquid diet. He is hungry for more to eat. White blood cell count normal. Objective - Vital Signs Vital signs: Vital Signs Temp 98.4 F 05/18/20 08:00 Pulse 68 05/18/20 08:00 Resp 18 05/18/20 08:00 BP 152/68 05/18/20 08:00 Pulse Ox 97 05/18/20 08:00 Intake & Output 05/17/20 05/18/20 05/18/20 18:59 06:59 18:59 Intake Total 1397.169 490 610 Output Total 600 600 600 Balance 797.169 -110 10 Weight 95 kg Intake: Intake, IV Titration 197.169 250 130 Amount Heparin Sod,Pork in 0.45% 197.169 250 NaCl 25,000 unit In 0.45 % NaCl 1 250ml.bag @ 10.2 UNITS/KG/HR 10.047 mls/ hr IV .Q24H [facility] Rx#: [id number] Sodium Chloride 0.9% 1, 130 000 ml @ 130 mls/hr IV . Q7H42M [facility] Rx#:[id number] Oral 1200 240 480 Output: Stool 600 600 600 Other: Voiding Method Urinal Urinal Urinal # Voids 1 1 - Exam Abdomen: Soft, nondistended, hernia partially reducible, minimal tenderness - Labs CBC & Chem 7: 05/18/20 05:46 05/18/20 05:46 Labs: Abnormal Lab Results - Last 24 Hours (Table) 05/17/20 05/17/20 05/17/20 Range/Units 11:52 16:54 20:43 RBC (4.30-5.90) m/uL Hgb (13.0-17.5) gm/dL Hct (39.0-53.0) % Plt Count (150-450) k/uL APTT (22.0-30.0) sec BUN (9-20) mg/dL Glucose (74-99) mg/dL POC Glucose (mg/dL) 148 H 110 H 160 H (75-99) mg/dL Calcium (8.4-10.2) mg/dL Magnesium (1.6-2.3) mg/dL Total Protein (6.3-8.2) g/dL Albumin (3.5-5.0) g/dL 05/18/20 05/18/20 05/18/20 Range/Units 05:46 05:46 05:46 RBC 3.12 L (4.30-5.90) m/uL Hgb 10.6 L (13.0-17.5) gm/dL Hct 30.2 L (39.0-53.0) % Plt Count 105 L (150-450) k/uL APTT 38.9 H (22.0-30.0) sec BUN 5 L (9-20) mg/dL Glucose 108 H (74-99) mg/dL POC Glucose (mg/dL) (75-99) mg/dL Calcium 8.3 L (8.4-10.2) mg/dL Magnesium 1.5 L (1.6-2.3) mg/dL Total Protein 5.4 L (6.3-8.2) g/dL Albumin 3.0 L (3.5-5.0) g/dL 05/18/20 Range/Units 06:29 RBC (4.30-5.90) m/uL Hgb (13.0-17.5) gm/dL Hct (39.0-53.0) % Plt Count (150-450) k/uL APTT (22.0-30.0) sec BUN (9-20) mg/dL Glucose (74-99) mg/dL POC Glucose (mg/dL) 119 H (75-99) mg/dL Calcium (8.4-10.2) mg/dL Magnesium (1.6-2.3) mg/dL Total Protein (6.3-8.2) g/dL Albumin (3.5-5.0) g/dL Assessment and Plan (1) Ventral hernia Narrative/Plan: Patient overall doing fairly well. We'll advance to regular diet. Current Visit: Yes Status: Acute Code(s): K43.9 - VENTRAL HERNIA WITHOUT OBSTRUCTION OR GANGRENE SNOMED Code(s): 815131455
[2020-05-18 12:48] LABS: Glucose,Whole Blood 173 mg/dL (75-99)
[2020-05-18] MEDS ORDERED: HEPARIN SODIUM,PORCINE 5,000 UNIT/ML 1 ML VIAL IV STA (14:05)
[2020-05-18 17:17] LABS: Glucose,Whole Blood 115 mg/dL (75-99)
[2020-05-18] MEDS: INSULIN DETEMIR (LEVEMIR) 100 UNIT/ML SYR SQ SCH (20:43)
[2020-05-18 20:54] LABS: Glucose,Whole Blood 124 mg/dL (75-99)
[2020-05-19] MEDS: SODIUM CHLORIDE 0.9% 1,000 ML IV SCH ×3 (02:17→21:00)
[2020-05-19] MEDS: carvediloL 6.25 MG TAB PO SCH ×2 (06:30→17:41)
[2020-05-19 07:00] LABS: Glucose,Whole Blood 125 mg/dL (75-99)
[2020-05-19] MEDS: INSULIN ASPART (NovoLOG) 100 UNIT/ML VIAL SQ SCH ×3 (07:01→17:36)
--- NOTE | 2020-05-19 09:09 | P.PN ---
Subjective Progress Note Date: 05/19/20 No new complaints today. Surgery to decide on whether to repair abdominal hernia this admission vs future visit. Blood thinner plan will be pending this decision. Objective - Vital Signs Vital signs: Vital Signs Temp 98.2 F 05/19/20 04:00 Pulse 60 05/19/20 04:00 Resp 16 05/19/20 04:00 BP 140/70 05/19/20 04:00 Pulse Ox 95 05/19/20 04:00 Intake & Output 05/18/20 05/19/20 05/19/20 18:59 06:59 18:59 Intake Total 909.067 540 Output Total 600 Balance 309.067 540 Weight 99.6 kg Intake: Intake, IV Titration 189.067 300 Amount Heparin Sod,Pork in 0.45% 59.067 NaCl 25,000 unit In 0.45 % NaCl 1 250ml.bag @ 10.2 UNITS/KG/HR 10.047 mls/ hr IV .Q24H [facility] Rx#: [id number] Sodium Chloride 0.9% 1, 130 300 000 ml @ 130 mls/hr IV . Q7H42M [facility] Rx#:[id number] Oral 720 240 Output: Stool 600 Other: Voiding Method Urinal Urinal # Voids 1 3 - Exam Gen: awake, alert HEENT: normocephalic, atraumatic, good hearing acuity, moist mucous membranes, Resp: CTAB, good air exchange, no accessory muscle use, no wheezes, crackles, rhonchi CVS: good distal perfusion x 4, RRR, no murmurs, clicks, gallops GI: soft, NTTP, ND, large incisional abdominal hernia : no SPT, no CVAT, cunningham catheter not present MSK: no pitting edema, no clubbing Neuro: non-focal, no sensory deficits, appropriate tone Psych: cooperative, euthymic mood - Labs CBC & Chem 7: 05/18/20 05:46 05/18/20 05:46 Labs: Abnormal Lab Results - Last 24 Hours (Table) 05/18/20 05/18/20 05/18/20 Range/Units 12:46 12:47 17:14 APTT 37.4 H (22.0-30.0) sec POC Glucose (mg/dL) 173 H 115 H (75-99) mg/dL 05/18/20 05/18/20 05/19/20 Range/Units 20:42 20:55 06:59 APTT 65.5 H (22.0-30.0) sec POC Glucose (mg/dL) 124 H 125 H (75-99) mg/dL Assessment and Plan Assessment: 1. Incarcerated Abdominal Hernia with SBO 2. Elevated Troponin 3. History of intra-cardiac thrombus on Coumadin 4. CAD 5. MITZI 6. HTN 7. HLD 8. DM II 70 year old man with history of CAD/HTN/HLD/DMII, intracardiac thrombus presented with ventral hernia with incarceration causing SBO, was admitted to surgery service and medicine asked for consultation and medical management. Incarcerated abdominal hernia with mechanical small bowel obstruction -As per the surgical service - PT tolerating a regular diet without nausea, vomiting. Intracardiac thrombus, on Coumadin -heparin gtt to be stopped 6 hours before surgery, then re-started with bridging back to coumadin 4-6 hours after surgery. -continue heparin gtt, following surgery, can start lovenox 100mg BID to bridge back to coumadin Acute kidney injury, prerenal, due to dehydration -Continue with IV fluids, monitor I/Os, daily weights. Chronic conditions: Hypertension, hyperlipidemia, type II DM, CAD -Continue with Levemir 25 units daily at bedtime (routinely takes 50 units) with insulin sliding scale and blood glucose monitoring -Continue with Lipitor, Coreg, Imdur -Hold off on spironolactone and Plavix until post-op
[2020-05-19] MEDS: ATORVASTATIN 40 MG TAB PO SCH (09:22)
[2020-05-19] MEDS: MAGNESIUM OXIDE 400 MG TAB PO SCH ×2 (09:22→20:51)
[2020-05-19] MEDS: PANTOPRAZOLE 40 MG TABLET PO SCH (09:22)
--- NOTE | 2020-05-19 12:14 | P.PN ---
Subjective Progress Note Date: 05/19/20 CHIEF COMPLAINT: Large abdominal wall hernia HISTORY OF PRESENT ILLNESS: Patient is being followed for a large ventral hernia. He is tolerating diet. His last BM was 2 days ago. He is passing gas. Denies any nausea or vomiting. Afebrile. WBC 4.0 hemoglobin 10.6 PHYSICAL EXAM: VITAL SIGNS: Reviewed. GENERAL: Well-developed in no acute distress. HEENT: No sclera icterus. Extraocular movements grossly intact. Moist buccal mucosa. Head is atraumatic, normocephalic. ABDOMEN: Soft. Nontender. Large abdominal wall hernia NEUROLOGIC: Alert and oriented. Cranial nerves II through XII grossly intact. ASSESSMENT: 1. 2 large ventral hernias with incarcerated single loop of small bowel and small hernia on the left side that is producing a mechanical small bowel obstruction. PLAN: -Patient is not going to be scheduled for hernia repair surgery. He is tolerating diet and having bowel movements. He is high risk for surgery due to his extensive cardiac history. -It is ok to resume patient's Coumadin -continue ground diet - Patient to follow up with Dr. Nguyen in 1 week after discharge Physician Legal Transcriptionist note has been reviewed by physician. Signing provider agrees with the documented findings, assessment, and plan of care. Objective - Vital Signs Vital signs: Vital Signs Temp 98.6 F 05/19/20 08:00 Pulse 51 L 05/19/20 08:00 Resp 16 05/19/20 08:00 BP 147/71 05/19/20 08:00 Pulse Ox 97 05/19/20 08:00 Intake & Output 05/18/20 05/19/20 05/19/20 18:59 06:59 18:59 Intake Total 909.067 540 476 Output Total 600 Balance 309.067 540 476 Weight 99.6 kg Intake: Intake, IV Titration 189.067 300 Amount Heparin Sod,Pork in 0.45% 59.067 NaCl 25,000 unit In 0.45 % NaCl 1 250ml.bag @ 10.2 UNITS/KG/HR 10.047 mls/ hr IV .Q24H [facility] Rx#: [id number] Sodium Chloride 0.9% 1, 130 300 000 ml @ 130 mls/hr IV . Q7H42M [facility] Rx#:[id number] Oral 720 240 476 Output: Stool 600 Other: Voiding Method Urinal Urinal # Voids 1 3 - Labs CBC & Chem 7: 05/18/20 05:46 05/18/20 05:46 Labs: Abnormal Lab Results - Last 24 Hours (Table) 05/18/20 05/18/20 05/18/20 Range/Units 12:46 12:47 17:14 APTT 37.4 H (22.0-30.0) sec POC Glucose (mg/dL) 173 H 115 H (75-99) mg/dL 05/18/20 05/18/20 05/19/20 Range/Units 20:42 20:55 06:59 APTT 65.5 H (22.0-30.0) sec POC Glucose (mg/dL) 124 H 125 H (75-99) mg/dL
[2020-05-19 12:44] LABS: Glucose,Whole Blood 119 mg/dL (75-99)
[2020-05-19 17:21] LABS: Glucose,Whole Blood 123 mg/dL (75-99)
[2020-05-19] MEDS ORDERED: WARFARIN 7.5 MG TAB PO ONE (18:00)
[2020-05-19 20:21] LABS: Glucose,Whole Blood 157 mg/dL (75-99)
[2020-05-19] MEDS: INSULIN DETEMIR (LEVEMIR) 100 UNIT/ML SYR SQ SCH (20:54)
[2020-05-19] MEDS: ENOXAPARIN 100 MG/ML SYRINGE SQ SCH (20:54)
[2020-05-20 03:55] VITALS: RESP 16
[2020-05-20] MEDS: SODIUM CHLORIDE 0.9% 1,000 ML IV SCH (04:09)
[2020-05-20 06:28] LABS: Glucose,Whole Blood 121 mg/dL (75-99)
[2020-05-20] MEDS: INSULIN ASPART (NovoLOG) 100 UNIT/ML VIAL SQ SCH (06:30)
[2020-05-20] MEDS: carvediloL 6.25 MG TAB PO SCH (06:32)
[2020-05-20 07:12] LABS: Prothrombin Time 10.6 sec (9.0-12.0)
[2020-05-20 07:21] LABS: Basophils % (A) 1 %; Eosinophils # (A) 0.2 k/uL (0-0.7); Eosinophils % (A) 3 %; HGB 10.1 gm/dL (13.0-17.5); Lymphocytes # (A) 1.2 k/uL (1.0-4.8); Lymphocytes % (A) 24 %; MCH 33.2 pg (25.0-35.0); MCHC 33.7 g/dL (31.0-37.0); MCV 98.4 fL (80.0-100.0); Mean Platelet Volume 7.3; Monocytes # (A) 0.3 k/uL (0-1.0); Monocytes % (A) 6 %; Neutrophils # (A) 3.2 k/uL (1.3-7.7); Neutrophils % (A) 64 %; Platelet Count 102 k/uL (150-450); RBC 3.05 m/uL (4.30-5.90); RDW 14.7 % (11.5-15.5)
[2020-05-20] MEDS: ATORVASTATIN 40 MG TAB PO SCH (08:47)
[2020-05-20] MEDS: MAGNESIUM OXIDE 400 MG TAB PO SCH (08:47)
[2020-05-20] MEDS: PANTOPRAZOLE 40 MG TABLET PO SCH (08:47)
[2020-05-20] MEDS: ENOXAPARIN 100 MG/ML SYRINGE SQ SCH (08:47)
[2020-05-20 08:50] VITALS: BP 152/66; PULSE 53; TEMP 98.1
[2020-05-20] MEDS ORDERED: NALOXONE 0.4 MG/ML 1 ML VIAL IV PRN (09:22)
[2020-05-20] MEDS ORDERED: ONDANSETRON 4 MG/2 ML VIAL IVP PRN (09:22)
--- NOTE | 2020-05-20 09:31 | P.PN ---
Subjective Progress Note Date: 05/20/20 No new complaints at this time. At this point, patient is ready for discharge, will self bridge back to coumadin with lovenox BID, with INR check later this week. Objective - Vital Signs Vital signs: Vital Signs Temp 98.1 F 05/20/20 08:00 Pulse 53 L 05/20/20 08:00 Resp 16 05/20/20 08:00 BP 152/66 05/20/20 08:00 Pulse Ox 96 05/20/20 08:00 Intake & Output 05/19/20 05/20/20 05/20/20 18:59 06:59 18:59 Intake Total 1142 300 240 Balance 1142 300 240 Weight 80.7 kg Intake: Oral 1142 300 240 Other: Voiding Method Urinal Urinal # Voids 3 2 - Labs CBC & Chem 7: 05/20/20 06:30 05/18/20 05:46 Labs: Abnormal Lab Results - Last 24 Hours (Table) 05/19/20 05/19/20 05/19/20 Range/Units 12:40 17:20 20:19 RBC (4.30-5.90) m/uL Hgb (13.0-17.5) gm/dL Hct (39.0-53.0) % Plt Count (150-450) k/uL POC Glucose (mg/dL) 119 H 123 H 157 H (75-99) mg/dL 05/20/20 05/20/20 Range/Units 06:27 06:30 RBC 3.05 L (4.30-5.90) m/uL Hgb 10.1 L (13.0-17.5) gm/dL Hct 30.0 L (39.0-53.0) % Plt Count 102 L (150-450) k/uL POC Glucose (mg/dL) 121 H (75-99) mg/dL
[2020-05-20 10:16] VITALS: BMI 28.7
--- NOTE | 2020-05-20 11:28 | P.DS ---
Providers Date of admission: 05/13/20 18:45 Expected date of discharge: 05/20/20 Attending physician: Migue Nguyen Consults: 05/13/20 19:37 Consult Physician Routine Consulting Provider: Kay Sparks Consult Reason/Comments: Acute kidney injury, medical management Do you want consulting provider notified?: Already Contacted 05/14/20 09:28 Consult Physician Routine Consulting Provider: Alison Yeh Consult Reason/Comments: surgical clearance Do you want consulting provider notified?: Yes Primary care physician: [facility] Course: Discharge diagnosis 1. 2 large ventral hernias with incarcerated single loop of small bowel and small hernia on the left side that is producing a mechanical small bowel obstruction. Hospital course Patient presented to the emergency room with increasing pain and discomfort in his abdominal wall hernia over the last 3 days. It has continued to grow in size over the last [address] Nguyen reduced hernia at bedside. He had a large 400 mL emesis feculent material. He did require NG Tube to be placed. NG tube was removed. He tolerated advancement of diet. He is having bowel movements. He denies any nausea or vomiting. He is up and ambulating. Due to patient's extensive cardiac history and the fact that he is tolerating diet no surgical intervention was needed. Medicine is taking care of patient's anticoagulation for his cardiac problem patient follow-up with Dr. Nguyen in 1 week. Please refer to chart for any further details. Physician Metal Fabricating Inspector note has been reviewed by physician. Signing provider agrees with the documented findings, assessment, and plan of care. Patient Condition at Discharge: Stable Plan - Discharge Summary New Discharge Prescriptions: New Enoxaparin [Lovenox] 100 mg SQ Q12H #10 syr Continue Clopidogrel Bisulfate [Plavix] 75 mg PO DAILY metFORMIN HCL [Glucophage] 500 mg PO BID Spironolactone [Aldactone] 25 mg PO DAILY #30 tab Isosorbide Mononitrate [Isosorbide Mononitrate ER] 30 mg PO DAILY Warfarin [Coumadin] 5 mg PO DAILY Acetaminophen Tab [Tylenol] 500 mg PO DAILY Nitroglycerin Sl Tabs [Nitrostat] 0.4 mg SL Q5M PRN PRN Reason: Chest Pain Insulin Glargine [Lantus] 50 unit SQ HS glipiZIDE [Glucotrol] 10 mg PO BID carvediloL [Coreg] 6.25 mg PO AC-BID Atorvastatin Calcium [Lipitor] 40 mg PO DAILY Discharge Medication List Clopidogrel Bisulfate [Plavix] 75 mg PO DAILY 01/25/14 [History] metFORMIN HCL [Glucophage] 500 mg PO BID 01/25/14 [History] Spironolactone [Aldactone] 25 mg PO DAILY #30 tab 01/26/14 [Rx] Isosorbide Mononitrate [Isosorbide Mononitrate ER] 30 mg PO DAILY 07/27/16 [History] Acetaminophen Tab [Tylenol] 500 mg PO DAILY 05/13/20 [History] Atorvastatin Calcium [Lipitor] 40 mg PO DAILY 05/13/20 [History] Insulin Glargine [Lantus] 50 unit SQ HS 05/13/20 [History] Nitroglycerin Sl Tabs [Nitrostat] 0.4 mg SL Q5M PRN 05/13/20 [History] Warfarin [Coumadin] 5 mg PO DAILY 05/13/20 [History] carvediloL [Coreg] 6.25 mg PO AC-BID 05/13/20 [History] glipiZIDE [Glucotrol] 10 mg PO BID 05/13/20 [History] Enoxaparin [Lovenox] 100 mg SQ Q12H #10 syr 05/19/20 [Rx] Follow up Appointment(s)/Referral(s): Laura Pryor MD [Primary Care Provider] - 1-2 days Migue Nguyen MD [STAFF PHYSICIAN] - 1 Week Activity/Diet/Wound Care/Special Instructions: Diet: regular Activity: as tolerated Discharge Disposition: HOME SELF-CARE
[2020-05-20 12:02] LABS: Glucose,Whole Blood 133 mg/dL (75-99)
[2020-05-20] MEDS ORDERED: WARFARIN 7.5 MG TAB PO ONE (18:00)
== END 2020-05-20 12:54 | disposition home or self-care (01) | DRG 394 ==
LOC: EC 15:59 → 3SCARD 18:45
PROVIDERS: ADMIT Surgery; ATTEND Surgery
DX: K43.6 Other and unspecified ventral hernia with obstruction, without gangrene (principal); N17.9 Acute kidney failure, unspecified; E87.1 Hypo-osmolality and hyponatremia; K56.699 Other intestinal obstruction unspecified as to partial versus complete obstruction; E78.5 Hyperlipidemia, unspecified; E86.0 Dehydration; R79.89 Other specified abnormal findings of blood chemistry; E80.6 Other disorders of bilirubin metabolism; I25.10 Atherosclerotic heart disease of native coronary artery without angina pectoris; K59.00 Constipation, unspecified; I49.5 Sick sinus syndrome; I11.0 Hypertensive heart disease with heart failure; I50.9 Heart failure, unspecified; E87.6 Hypokalemia; K43.0 Incisional hernia with obstruction, without gangrene; E11.9 Type 2 diabetes mellitus without complications; I51.3 Intracardiac thrombosis, not elsewhere classified; I45.10 Unspecified right bundle-branch block; I25.5 Ischemic cardiomyopathy; I48.0 Paroxysmal atrial fibrillation; E87.8 Other disorders of electrolyte and fluid balance, not elsewhere classified; Z79.02 Long term (current) use of antithrombotics/antiplatelets; Z79.899 Other long term (current) drug therapy; Z79.4 Long term (current) use of insulin; Z95.5 Presence of coronary angioplasty implant and graft; Z79.82 Long term (current) use of aspirin; Z95.1 Presence of aortocoronary bypass graft; Z83.3 Family history of diabetes mellitus; Z82.49 Family history of ischemic heart disease and other diseases of the circulatory system; Z80.9 Family history of malignant neoplasm, unspecified; Z79.01 Long term (current) use of anticoagulants; Z95.810 Presence of automatic (implantable) cardiac defibrillator
CPT/HCPCS: 36415; 71045; 71046; 74018; 74176; 76705; 80048; 80053; 81003; 82150; 82272; 83605; 83690; 83735; 84484; 85025; 85027; 85610; 85730; 93005; 93306; 96360; 96361; 99285